=== PATIENT | female | born 1960 | race Caucasian/White ===

== ENCOUNTER → 2022-05-29 14:36 | Outpatient (BNVA) | payer OTHER, SELFPAY | PROVIDERS: PCP Family Medicine; Visit Provider Family Medicine | DX: E11.9 Type 2 diabetes mellitus without complications (principal); I10 Essential (primary) hypertension; R32 Unspecified urinary incontinence; Z12.39 Encounter for other screening for malignant neoplasm of breast; Z12.11 Encounter for screening for malignant neoplasm of colon; Q79.60 Ehlers-Danlos syndrome, unspecified; M25.511 Pain in right shoulder; M25.512 Pain in left shoulder; N81.6 Rectocele; R07.9 Chest pain, unspecified; D35.00 Benign neoplasm of unspecified adrenal gland | CPT/HCPCS: 80053; 80061; 81000; 83036 ==

== ENCOUNTER 2022-06-02 14:41 | Outpatient (CLI) | payer OTHER, SELFPAY ==
--- NOTE | 2022-06-02 14:47 | MM_ITS ---
WS: [id number] BILATERAL 3D TOMOSYNTHESIS DIGITAL SCREENING MAMMOGRAPHY WITH CAD CLINICAL INFORMATION: screen for breast cancern HISTORY: Screening mammogram. No current complaints. COMPARISON: None. TECHNIQUE: Bilateral CC and MLO views. FINDINGS: Scattered fibroglandular densities bilaterally. No suspicious focal mass, asymmetry, calcifications, or architectural distortion. No evidence of malignancy. A few tiny incidental punctate calcifications . MM/[place] [id number] IMPRESSION: BI-RADS: 2-Benign FOLLOW UP: 1 Year Follow-up Recommend return to annual screening mammography.
== END 2022-06-02 14:42 | disposition home or self-care (01) ==
LOC: RAD 14:44
PROVIDERS: PCP Family Medicine; Visit Provider Family Medicine
DX: Z12.31 Encounter for screening mammogram for malignant neoplasm of breast (principal)
CPT/HCPCS: 77063; 77067

== ENCOUNTER → 2022-07-02 11:54 | Outpatient (BNVA) | payer OTHER, SELFPAY | PROVIDERS: PCP Family Medicine; Visit Provider Family Medicine | DX: I10 Essential (primary) hypertension (principal); E11.9 Type 2 diabetes mellitus without complications | CPT/HCPCS: 80048 ==

== ENCOUNTER 2022-09-15 13:00 | Emergency (ER) | payer OTHER, SELFPAY ==
[2022-09-15 14:06] VITALS: BP 132/75; PULSE 82; RESP 13; TEMP 36.6; O2SAT 100
--- NOTE | 2022-09-15 14:27 | W.ED.UPPEXIN ---
HPI - Extremity Injury (Upper) General: Chief Complaint: Extremity Injury, Upper Stated Complaint: Right ring finger cut Time Seen by Provider: 09/15/22 14:13 Source: patient Mode of arrival: ambulatory Limitations: no limitations History of Present Illness: Patient is a 61-year-old female presents to ED today with a complaint of a right fourth finger injury. Patient states just prior to arrival she was using a mandolin to slice and eggplant when she sliced the distal tip of her finger off. Last tetanus unknown MD complaint: injury to: right and finger Onset (ago): hour(s) Other injuries: none Place: home Severity: mild Relieving factors: none Exacerbating factors: none Context: laceration (avulsion) Associated symptoms: Reports no associated symptoms Review of Systems Musc: Reports: extremity pain (R 4th finger) Skin/Breast: Reports: other (distal tip finger amputation ) Neuro: Denies: numbness in extremities or sensory changes PFSH ED PFSH: Medical History Remi-Danlos syndrome Hypertension Surgical History History of ankle surgery left History of arthroscopy of left knee History of carpal tunnel repair History of cholecystectomy History of hysterectomy History of repair of rectocele History of total knee arthroplasty right Family History Sister Stroke Diabetes Hypertension Thyroid disease Mother Breast cancer Denies family history of Colon cancer Ovarian cancer Heart disease Hypercholesteremia Uterine cancer Social History Smoking and tobacco status: never smoked Second hand smoke exposure: No Alcohol intake: never History of recent travel: No Physical Exam Const: COMMON NORMALS: no acute distress, average body habitus, patient oriented x3, no limitations, healthy appearing, alert and well nourished GENERAL APPEARANCE: cooperative Extremity: COMMON NORMALS: full ROM GENERAL: Yes normal exam except as noted RIGHT UPPER EXTREMITY: Yes hand & digits OTHER: pt has a minor fingertip amputation to the distal tip/soft tissue of her R 4th finger; no bleeding currently; no bony involvement; no nail involvement Neuro: COMMON NORMALS: patient oriented x3, moves all extremities, no focal motor deficits and no sensory deficits noted SENSORIUM/ORIENTATION: Yes alert Course Vital Signs: Vital signs: Vital Signs Temperature 97.8 F 09/15/22 14:06 Pulse Rate 82 09/15/22 14:06 Respiratory Rate 13 09/15/22 14:06 Blood Pressure 132/75 09/15/22 14:06 Pulse Oximetry 100 09/15/22 14:06 Oxygen Delivery Me thod 09/15/22 14:06 MDM - Extremity Injury (Upper) Medical Decision Making Patient has a minor soft tissue amputation to the distal tip of her right fourth finger. No bony or nail involvement. Tetanus will be updated. Wound care discussed at home. Return to ED precautions given. Discharge Plan Discharge Patient Disposition: Home Clinical Impression: Fingertip amputation Qualifiers: Encounter type: initial encounter Qualified Code(s): S68.119A - Complete traumatic metacarpophalangeal amputation of unspecified finger, initial encounter Condition: Stable Prescriptions: No Action estradiol [Estrace] 0.01 % (0.1 mg/gram) cream 1 g vaginal DAILY Qty: 42.5 0RF Rx Instructions: for 14 nights, then twice weekly after that. tramadol 50 mg tablet 50 mg PO BID PRN (Reason: pain) Qty: 45 0RF methocarbamol 750 mg tablet 750 mg PO BID Qty: 60 0RF loratadine [Allergy Relief (loratadine)] 10 mg tablet 10 mg PO DAILY ASPIRIN as directed diphenhydramine HCl [Benadryl] 25 mg capsule 50 mg PO .qhs PRN baclofen 10 mg tablet 10 mg PO BID PRN (Reason: spasm) Qty: 60 0RF potassium chloride 20 mEq tablet extended release 20 meq PO DAILY 30 Days Qty: 30 2RF lisinopril-hydrochlorothiazide 20-25 mg tablet 1 tab PO DAILY 90 Days Qty: 90 0RF Discharge Orders: Discharge ED (Routine); Ordered 09/15/22 Ordered By: Mary Moore Referrals: Valery Rodriguez MD [Primary Care Provider] - Patient Instructions: Opioid Safety, Pain Management Coding Level of Care Code ED Publication Designer for Maicol Robertson
[2022-09-15] MEDS: tetanus-diphtheria tox (adult) 0.5 mL SDV IM (15:02)
== END 2022-09-15 15:00 | disposition home or self-care (01) ==
PROVIDERS: Emergency Provider Physician Assistant; PCP Family Medicine
DX: S68.614A Complete traumatic transphalangeal amputation of right ring finger, initial encounter (principal); Z79.82 Long term (current) use of aspirin; I10 Essential (primary) hypertension; W26.0XXA Contact with knife, initial encounter; Z23 Encounter for immunization
CPT/HCPCS: 90471; 90714; 99283

== ENCOUNTER → 2022-11-27 07:59 | Outpatient (BNVA) | payer OTHER, SELFPAY | PROVIDERS: PCP Family Medicine; Visit Provider Family Medicine | DX: E87.6 Hypokalemia (principal) | CPT/HCPCS: 80048; 83036 ==

== ENCOUNTER → 2023-02-04 09:35 | Outpatient (BNVA) | payer OTHER, SELFPAY | PROVIDERS: PCP Family Medicine; Visit Provider Family Medicine | DX: E87.6 Hypokalemia (principal) | CPT/HCPCS: 80048 ==

== ENCOUNTER → 2023-02-23 09:07 | Outpatient (BNVA) | payer OTHER, SELFPAY | PROVIDERS: PCP Family Medicine; Visit Provider Family Medicine | DX: R53.83 Other fatigue (principal); R11.0 Nausea | CPT/HCPCS: 80053; 82306; 82607; 84443; 85025 ==

== ENCOUNTER 2023-10-06 08:43 | Emergency (ER) | payer MEDICAID, SELFPAY ==
[2023-10-06 08:46] VITALS: BP 146/80; PULSE 69; RESP 18; TEMP 36.8; O2SAT 98; BMI 27.4
--- NOTE | 2023-10-06 08:52 | XR_ITS ---
WS: [id number] XR elbow RT min 3V* [id number] REASON FOR EXAM: FALL FINDINGS: No joint effusion identified. There is a very subtle deformity of the medial radial head/shaft junction which could represent acute nondisplaced proximal radial fracture. Large enthesophyte at the flexor origin on the medial femoral condyle. Joint spaces of the right elbow are intact. IMPRESSION: Potential proximal radial occult fracture as above.
--- NOTE | 2023-10-06 09:08 | CT_ITS ---
WS: [id number] CT HEAD TECHNIQUE: Noncontrast CT of the head obtained from the skullbase to the vertex. CLINICAL INFORMATION: trauma COMPARISON: None. DLP: 1461.[address] scans at [facility] use at least one of these dose optimization techniques: automated e xposure control; mA and/or kV adjustment per patient size (includes targeted exams where dose is matc hed to clinical indication); or iterative reconstruction. FINDINGS: No evidence of intracranial hemorrhage or mass effect. Ventricular system and basal cisterns are brown nt. Minimal small vessel changes with mild parenchymal volume loss. No extra-axial fluid collections. No evidence of mass or mass effect. Normal hobbs-white differentiation. Paranasal sinuses and mastoid air cells are well aerated. .Normal visualized soft tissues. IMPRESSION: 1. No evidence of intracranial hemorrhage or mass effect. 2. No acute intracranial findings.
[2023-10-06 09:35] VITALS: BP 146/80; O2SAT 96
--- NOTE | 2023-10-06 09:44 | ED_ITS ---
HPI - Fall General: Chief Complaint: Fall Stated Complaint: FALL Time Seen by Provider: 10/06/23 08:47 Source: patient Mode of arrival: EMS History of Present Illness: 62-year-old female presents emergency ro om via EMS yesterday she fell hit the back of her head she had some headaches some nausea she has not vomited. She also had some dizziness associated with it. No loss consciousness at the time of fall. Denies any other injuries no vomiting or vision changes since the fall does have persistent mild headache and dizziness MD complaint: fall Onset (ago): hour(s) Fall from: standing Fall witnessed: no Place fall occurred: home Loss of consciousness: None Prolonged down time: no Symptoms prior to fall: none Context: tripped/slipped Location of injury: head Associated symptoms-after fall: Reports headache(s) and neck pain; Denies abdominal pain or chest pain Review of Systems Const: Denies: fever(s) or chills Card: Denies: chest pain Resp: Denies: dyspnea GI: Denies: abdominal pain : Denies: dysuria, urinary frequency or urinary urgency Musc: Reports: neck pain; Denies: back pain Skin/Breast: Denies: rash Neuro: Reports: headache(s) PFSH ED PFSH: Medical History Seasonal allergies Remi-Danlos syndrome Hypertension Surgical History History of carpal tunnel repair History of ankle surgery left History of repair of rectocele History of hysterectomy History of arthroscopy of left knee History of total knee arthroplasty right History of cholecystectomy Family History Sister Stroke Diabetes Hypertension Thyroid disease Mother Breast cancer Denies family history of Colon cancer Ovarian cancer Heart disease Hypercholesteremia Uterine cancer Social History Smoking and tobacco/nicotine status: never used tobacco/nicotine Second hand smoke exposure: No Alcohol intake: never Substance/Drug Use: never Physical Exam Const: COMMON NORMALS: no acute distress GENERAL APPEARANCE: cooperative and comfortable ORIENTATION/CONSCIOUSNESS: Yes awake, Yes oriented to person, Yes oriented to place and Yes oriented to time HENMT: COMMON NORMALS: normocephalic, atraumatic and hearing grossly normal bilaterally HEAD & SCALP: normocephalic and atraumatic Resp: COMMON NORMALS: normal respiratory effort, No retractions, No use of accessory muscles and clear to auscultation bilaterally AUSCULTATION: clear to auscultation bilaterally Cardio: COMMON NORMALS: regular rate, regular rhythm and No murmurs present (Cardio) RATE: regular rate RHYTHM: regular rhythm GI: COMMON NORMALS: Soft to palpation and No hepatosplenomegaly present AUSCULTATION: Yes normoactive bowel sounds PALPATION: Yes Soft to palpation, No Tenderness to palpation present (GI), No Guarding due to palpation present (GI) and Yes No hepatosplenomegaly present Extremity: COMMON NORMALS: normal to inspection, capillary refill normal, no clubbing, cyanosis or edema, no calf tenderness and no pedal edema Neuro: SENSORIUM/ORIENTATION: Yes oriented to person, Yes oriented to place and Yes oriented to time Skin: COMMON NORMALS: no rashes or lesions noted GENERAL SKIN EXAM: no rashes or lesions noted Course Vital Signs: Vital signs: Vital Signs Temperature 98.2 F 10/06/23 08:46 Pulse Rate 69 10/06/23 08:46 Respiratory Rate 18 10/06/23 08:46 Blood Pressure 146/80 10/06/23 09:35 Pulse Oximetry 97 10/06/23 10:23 Oxygen Delivery Me thod Room Air 10/06/23 10:23 MDM - Fall Medical Decision Making Labs are unremarkable elbow x-ray shows a possible occult radial head fracture remainder of the imaging is negative. Will place patient in a sling advised not to use the right elbow and follow-up imaging and consultation with orthopedics as an outpatient Medical Records I reviewed the patient's medical records. Lab Data I reviewed the patient's lab results. All radiology interpretation(s) finalized by discharge Discharge Plan Discharge Patient Disposition: Home Clinical Impression: Radial head fracture Condition: Stable Prescriptions: No Action tramadol 50 mg tablet 50 mg PO BID PRN (Reason: pain) Qty: 45 0RF methocarbamol 750 mg tablet 750 mg PO BID Qty: 60 1RF loratadine [Allergy Relief (loratadine)] 10 mg tablet 10 mg PO DAILY ASPIRIN as directed diphenhydramine HCl [Benadryl] 25 mg capsule 50 mg PO .qhs PRN baclofen 10 mg tablet 10 mg PO BID PRN (Reason: spasm) Qty: 60 0RF potassium chloride 20 mEq tablet extended release 40 meq PO DAILY 30 Days Qty: 30 2RF omeprazole 40 mg capsule,delayed release(DR/EC) See Rx Instructions .ROUTE .COMPLEX Qty: 90 0RF Dose Instruction: TAKE 1 CAPSULE BY MOUTH DAILY Rx Instructions: TAKE 1 CAPSULE BY MOUTH DAILY levalbuterol HCl 1.25 mg/3 mL solution for nebulization See Rx Instructions .ROUTE .COMPLEX Qty: 75 0RF Dose Instruction: INHALE 1 VIAL VIA NEBULIZER EVERY 4 HOURS NEEDED FOR SHORTNESS OF BREATH OR WHEEZING Rx Instructions: INHALE 1 VIAL VIA NEBULIZER EVERY 4 HOURS NEEDED FOR SHORTNESS OF BREATH OR WHEEZING estradiol 0.01 % (0.1 mg/gram) cream See Rx Instructions .ROUTE .COMPLEX Qty: 42.5 0RF Dose Instruction: APPLY ONE GRAM VAGINALLY ONCE NIGHTLY FOR 14 NIGHTS AND THEN USE TWICE WEEKLY THEREAFTER Rx Instructions: APPLY ONE GRAM VAGINALLY TWICE WEEKLY lisinopril-hydrochlorothiazide 20-25 mg tablet See Rx Instructions .ROUTE .COMPLEX Qty: 90 0RF Dose Instruction: TAKE 1 TABLET BY MOUTH DAILY Rx Instructions: TAKE 1 TABLET BY MOUTH DAILY Discharge Orders: Discharge ED (Routine); Ordered 10/06/23 Ordered By: Cam Esteban Referrals: Valery Rodriguez MD [Primary Care Provider] - Discharge Diet: Usual diet Discharge Activity: Limit activity as instructed and Use walker/crutches as instructed Patient Instructions: Opioid Safety, Pain Management Activity Restrictions/Additional Instructions: Thank you for choosing [facility] for your healthcare needs today. Please realize this is an emergency room and that we are providing you with a medical screening exam and this may not be complete and all inclusive of all the testing and or work up that you may need to determine your ailment or severity of your illness. It is very important that you follow up as instructed or that you return to the Emergency Department should you have concerns or if your condition changes or worsens in any way. You were seen today after a fall. You have a nondisplaced radial head fracture. This does not likely going to require surgery or a cast and you should simply use the sling until released by orthopedics. Case management make arrangements for you to have a follow-up with the orthopedic clinic your other imaging was normal. Coding Level of Care Code ED Paper Cup Handle Machine Operator for Maicol Robertson
--- NOTE | 2023-10-06 09:54 | CT_ITS ---
WS: [id number] CT CERVICAL TRAUMA TECHNIQUE: Noncontrast CT of the cervical spine with coronal and sagittal reformatted images. CLINICAL INFORMATION: Trauma COMPARISON: None. DLP: 1461.[address] scans at [facility] use at least one of these dose optimization techniques: automated e xposure control; mA and/or kV adjustment per patient size (includes targeted exams where dose is matc hed to clinical indication); or iterative reconstruction. FINDINGS: Mild cervical curve. Straightening of the normal cervical lordosis. Mild spondylitic changes. Disc sp yuan narrowing worse at C4-C5 and C5-C6. Normal craniocervical junction. Normal C1-C2 articulation. De ns is normal in appearance. Normal occipital condyles. No high-grade spinal canal narrowing. Normal C 1 ring. No evidence of acute fracture or dislocation. Normal prevertebral soft tissues. Mastoids air cells are well aerated. IMPRESSION: No evidence of acute fracture or dislocation.
--- NOTE | 2023-10-06 09:54 | XR_ITS ---
WS: [id number] XR shoulder RT min 2V* [id number] REASON FOR EXAM: Trauma FINDINGS: Clavicle intact. Acromioclavicular joint intact with moderate narrowing and moderate subchondral sclerosis and osteoph ytosis. Glenohumeral joint intact. No humeral or glenoid fracture. Scapula appears intact. IMPRESSION: No acute abnormality.
[2023-10-06 10:23] VITALS: O2SAT 97
--- NOTE | 2023-10-07 08:02 | DCPLANNER ---
Message sent to Orthopedics for a follow up appointment on- occult radial head fracture.
== END 2023-10-06 11:36 | disposition home or self-care (01) ==
PROVIDERS: Emergency Provider Family Medicine; PCP Family Medicine
DX: S52.121A Displaced fracture of head of right radius, initial encounter for closed fracture (principal); I10 Essential (primary) hypertension; W19.XXXA Unspecified fall, initial encounter
CPT/HCPCS: 70450; 72125; 73030; 73080; 99284

== ENCOUNTER → 2023-11-27 10:05 | Outpatient (BNVA) | payer OTHER, SELFPAY | PROVIDERS: PCP Family Medicine; Visit Provider Family Medicine | DX: Z00.01 Encounter for general adult medical examination with abnormal findings (principal) | CPT/HCPCS: 80053; 80061; 83036; 85025 ==

== ENCOUNTER 2024-01-11 14:27 | Outpatient (CLI) | payer OTHER, SELFPAY ==
--- NOTE | 2024-01-11 14:38 | XR_ITS ---
WS: [id number] XR knee RT 3V* [id number] REASON FOR EXAM: pain swelling of r knee; s/p tka FINDINGS: Total right knee arthroplasty. The components of the arthroplasty are intact and in proper position and alignment unchanged compared to 01/11/2024. No new findings. XR/XR knee RT 3V* [id number] IMPRESSION: Stable total right knee arthroplasty.
== END 2024-01-11 14:28 | disposition home or self-care (01) ==
LOC: RAD 14:31
PROVIDERS: PCP Family Medicine; Visit Provider Family Medicine
DX: M25.561 Pain in right knee (principal); Z96.651 Presence of right artificial knee joint
CPT/HCPCS: 73562

== ENCOUNTER → 2024-03-11 09:30 | Outpatient (BNVA) | payer OTHER, MEDICAID, SELFPAY | PROVIDERS: PCP Family Medicine; Referring Provider Family Medicine; Visit Provider Physician Assistant | DX: M25.561 Pain in right knee (principal); Z96.651 Presence of right artificial knee joint | CPT/HCPCS: 73560; 73565 ==

== ENCOUNTER 2024-03-28 14:15 | Outpatient (CLI) | payer OTHER, MEDICAID, SELFPAY ==
--- NOTE | 2024-03-28 14:30 | CT_ITS ---
WS: [id number] CT RIGHT KNEE, NONCONTRAST HISTORY: checking right knee replacement hardware Technique: All CT scans at [facility] use at least one of these dose optimization techniques: automated exposure control; mA and/or kV adjustment per patient size (includes targeted exams where dose is matched to clinical indication); or iterative reconstruction. DLP: 477.84 mGy.cm COMPARISON: Radiograph 03/11/2024 Patient is status post RIGHT total knee arthroplasty. There is artifact from the arthroplasty. Hardwa re appears appropriately positioned and aligned on the localizer image. No fractures or displacement. No loosening is identified by CT. No destructive bone lesions. Medial and lateral compartments appea r appropriate. No loose bodies. No significant muscle atrophy. Small suprapatellar joint effusion. CT/CT knee RT wo con* [id number] IMPRESSION: 1. Status post RIGHT total knee arthroplasty appears appropriate when evaluate d by CT. 2. No evidence for loosening or malalignment. No loose body identified. 3. Small suprapatellar joint effusion.
== END 2024-03-28 14:16 | disposition home or self-care (01) ==
PROVIDERS: PCP Family Medicine; Visit Provider Physician Assistant
DX: T84.84XA Pain due to internal orthopedic prosthetic devices, implants and grafts, initial encounter (principal); Z96.651 Presence of right artificial knee joint
CPT/HCPCS: 73700; 85025; 85651; 86140

== ENCOUNTER 2024-05-09 14:32 | Outpatient (CLI) | payer OTHER, MEDICAID, SELFPAY ==
[2024-05-09 15:10] LABS: Eosinophils # 0.2 10^3/uL (0.0-0.8); Eosinophils % 3.4 %; Hematocrit 35.6 % (36-47); Lymphocytes # 2.2 10^3/uL (0.8-4.8); Lymphocytes % 37.4 %; Mean Corpuscular Hemoglobin 30.5 pg (27-33); Mean Corpuscular Volume 89.7 fl (85-98); Monocytes # 0.4 10^3/uL (0.2-0.9); Monocytes % 6.5 %; Neutrophils # 3.08 10^3/uL (1.8-7.7); Neutrophils % 52.5 %; Nucleated Red Blood Cells % 0 %; Platelet Count 231 10^3/cmm (157-399); Red Blood Count 3.97 10^6/uL (3.85-5.65); Red Cell Distribution Width 12.2 % (12.1-15.1); White Blood Count 5.86 10^3/uL (3.29-11.43)
[2024-05-09 15:26] LABS: Albumin Level 4.2 g/dL (3.5-5.2); Alkaline Phosphatase 53 U/L (35-105); Anion Gap 16.1 (5-19); Aspartate Amino Transferase 13 U/L (0-32); Blood Urea Nitrogen 13 mg/dL (8-23); Calcium 8.7 mg/dL (8.5-10.5); Carbon Dioxide 26 mmol/L (22-29); Chloride 100 mmol/L (98-107); Globulin 2.3 g/dL (1.3-4.6); Glomerular Filtration Rate 72.2 mL/min (90-130); Glucose 135 mg/dL (65-115); Osmolality Calculated 290 mOsm/kg (285-295); Potassium 3.1 mmol/L (3.5-5.1); Sodium 139 mmol/L (136-145); Total Bilirubin 0.2 mg/dL (0.15-1.2); Total Protein 6.5 g/dL (6.6-8.7)
[2024-05-09 15:38] LABS: Alanine Aminotransferase 15 U/L (0-33)
== END 2024-05-09 14:33 | disposition home or self-care (01) ==
LOC: LAB 14:34
PROVIDERS: PCP Family Medicine; Visit Provider Family Medicine
DX: D35.00 Benign neoplasm of unspecified adrenal gland (principal)
CPT/HCPCS: 36415; 80053; 83835; 85025

== ENCOUNTER 2024-05-13 09:02 | Outpatient (CLI) | payer OTHER, MEDICAID, SELFPAY ==
[2024-05-13 09:45] LABS: Alanine Aminotransferase 14 U/L (0-33); Albumin Level 4.4 g/dL (3.5-5.2); Alkaline Phosphatase 55 U/L (35-105); Anion Gap 16.3 (5-19); Aspartate Amino Transferase 15 U/L (0-32); Blood Urea Nitrogen 11 mg/dL (8-23); Calcium 8.8 mg/dL (8.5-10.5); Carbon Dioxide 25 mmol/L (22-29); Chloride 100 mmol/L (98-107); Globulin 2.3 g/dL (1.3-4.6); Glomerular Filtration Rate 72.2 mL/min (90-130); Glucose 118 mg/dL (65-115); Osmolality Calculated 286 mOsm/kg (285-295); Potassium 3.3 mmol/L (3.5-5.1); Sodium 138 mmol/L (136-145); Total Bilirubin 0.3 mg/dL (0.15-1.2); Total Protein 6.7 g/dL (6.6-8.7)
== END 2024-05-13 09:03 | disposition home or self-care (01) ==
LOC: LAB 09:05
PROVIDERS: PCP Family Medicine; Visit Provider Internal Medicine
DX: E27.9 Disorder of adrenal gland, unspecified (principal); D35.00 Benign neoplasm of unspecified adrenal gland
CPT/HCPCS: 36415; 80053; 82088; 84244

== ENCOUNTER 2024-05-17 08:03 | Outpatient (CLI) | payer OTHER, MEDICAID, SELFPAY ==
[2024-05-17 08:44] LABS: Total Volume Urine 1700 ml
[2024-05-17 08:51] LABS: Urine Creatinine 58 mg/dL (28-217)
== END 2024-05-17 08:04 | disposition home or self-care (01) ==
LOC: LAB 08:06
PROVIDERS: PCP Family Medicine; Visit Provider Internal Medicine
DX: E27.9 Disorder of adrenal gland, unspecified (principal); D35.00 Benign neoplasm of unspecified adrenal gland
CPT/HCPCS: 82384; 82530; 82570

== ENCOUNTER → 2024-07-21 08:44 | Outpatient (BNVA) | payer OTHER, MEDICAID, SELFPAY | PROVIDERS: PCP Family Medicine; Visit Provider Physician Assistant | DX: Z01.818 Encounter for other preprocedural examination (principal); E11.9 Type 2 diabetes mellitus without complications | CPT/HCPCS: 36415; 80053; 81001; 83036; 85025 ==

== ENCOUNTER 2024-07-28 16:38 | Outpatient (CLI) | payer OTHER, MEDICAID, SELFPAY ==
--- NOTE | 2024-07-28 16:45 | CT_ITS ---
WS: [id number] CT LEFT knee, noncontrast HISTORY: LEFT TOTAL KNEE ARTHROPLASTY TECHNIQUE: Protocol for [facility] total knee replacement has been obtained. This includes axial imaging th rough the LEFT hip, LEFT knee and LEFT ankle. DLP: 934.56 mGy.cm COMPARISON: Radiograph 03/11/2024 Pelvis: Mild degenerative air in the SI joints. No destructive bone lesions. Small erosion and sclero sis involving the symphysis pubis. Small scattered sigmoid diverticula. LEFT knee: Mild tricompartment joint space narrowing. Screw and plate fixation along the medial tibia l metaphysis. No hardware fracture identified or lucency surrounding the screws. LEFT ankle: Subchondral cystic changes noted in the midfoot. CT/CT knee [facility] [id number] IMPRESSION: CT imaging provided for [facility] robotic total knee replacement.
== END 2024-07-28 16:39 | disposition home or self-care (01) ==
LOC: RAD 16:39
PROVIDERS: PCP Family Medicine; Visit Provider Student in an Organized Health Care Education/Training Program
DX: Z01.818 Encounter for other preprocedural examination (principal); M17.12 Unilateral primary osteoarthritis, left knee; M85.672 Other cyst of bone, left ankle and foot
CPT/HCPCS: 73700

== ENCOUNTER 2024-08-08 15:30 | Observation (INO) | payer OTHER, MEDICAID, SELFPAY ==
[2024-08-08] VITALS (15 sets, daily range): BP systolic 99–137; BP diastolic 52–77; PULSE 68–91; RESP 14–18; TEMP 36.5–37; O2SAT 92–100; BMI 28.3
--- NOTE | 2024-08-08 11:14 | W.PM.OPSUD ---
Surgery/Procedure H&P Update DATE OF PROCEDURE: August 08, 2024 DATE H&P PERFORMED: 07/21/24 H&P UPDATE INFORMATION: I have reviewed H&P completed within last 30 days, I have examined patient prior to procedure and No changes to prior documentation CHANGES TO PREVIOUS DOCUMENTATION: Patient cleared the preoperative clearance process and ready proceed with surgical intervention for a left total knee arthroplasty with left knee removal orthopedic hardware. Patient understands the ins outs procedure risk benefits complication alternatives with surgery and through shared decision make elects proceed with surgical invention. All questions answered at this time. PREOP DIAGNOSIS: Retained orthopedic hardware, left knee degenerative joint disease PRIMARY INDICATION FOR PROCEDURE: Retained orthopedic hardware, left knee degenerative joint disease PLANNED PROCEDURE: Operation Date: 08/08/24 13:30 Proposed Procedures p Farhan Robot Total Knee Arthroplasty(Left) - Hunter Petersen DO s Hardware Removal Knee(Left) - Hunter Petersen DO
[2024-08-08] MEDS: lactated ringers 500 ML IV (11:27)
[2024-08-08] MEDS: ketorolac 30 mg/mL INJ IVP (11:30)
[2024-08-08 11:31] LABS: Basophils % 0.2 %; Eosinophils # 0.1 10^3/uL (0.0-0.8); Eosinophils % 1.7 %; Hematocrit 36.5 % (36-47); Lymphocytes # 1.8 10^3/uL (0.8-4.8); Lymphocytes % 31.6 %; Mean Corpuscular HGB Conc 33.7 g/dL (30-55); Mean Corpuscular Hemoglobin 29.9 pg (27-33); Mean Corpuscular Volume 88.8 fl (85-98); Monocytes # 0.4 10^3/uL (0.2-0.9); Monocytes % 6.6 %; Neutrophils # 3.45 10^3/uL (1.8-7.7); Neutrophils % 59.6 %; Nucleated Red Blood Cells % 0 %; Platelet Count 256 10^3/cmm (157-399); Red Blood Count 4.11 10^6/uL (3.85-5.65); Red Cell Distribution Width 12.4 % (12.1-15.1); White Blood Count 5.79 10^3/uL (3.29-11.43)
[2024-08-08] MEDS: acetaminophen 1,000 MG/100 ML PIGGYBACK 400 MG IV ×2 (11:35→19:57)
[2024-08-08] MEDS: scopolamine 1.5 Patch 1 PATCH TRANSDERMA (11:40)
[2024-08-08 12:00] LABS: Anion Gap 12.8 (5-19); Blood Urea Nitrogen 8 mg/dL (8-23); Calcium 9.4 mg/dL (8.5-10.5); Carbon Dioxide 30 mmol/L (22-29); Chloride 97 mmol/L (98-107); Creatinine Clr Calc Pharmacy 83.3704; Glomerular Filtration Rate 84.2 mL/min (90-130); Glucose 96 mg/dL (65-115); Osmolality Calculated 280 mOsm/kg (285-295); Potassium 3.8 mmol/L (3.5-5.1); Sodium 136 mmol/L (136-145)
--- NOTE | 2024-08-08 12:30 | ANES.PREANE2 ---
Pre-Anesthetic Assessment Height/Weight: Height 1.65 m Weight 77.111 kg Temp Pulse Resp BP Pulse Ox O2 Del Method 97.9 F 80 16 125/72 99 Room Air 08/08/24 11:10 08/08/24 11:10 08/08/24 11:10 08/08/24 11:10 08/08/24 11:10 08/08/24 11:44 Preop Diagnosis: Retained orthopedic hardware, left knee degenerative joint disease Operation Date: 08/08/24 13:30 Proposed Procedures p Farhan Robot Total Knee Arthroplasty(Left) - Hunter Petersen DO s Hardware Removal Knee(Left) - Hunter Petersen DO Familial anesthetic complications: None Was Beta Hector taken within 24 hours: N/A Was Clonidine taken within 24 hours: N/A Last intake: Intake Last Liquid Date 08/07/24 Last Liquid Time 18:00 Last Solid Date 08/07/24 Last Solid Time 18:00 Social No alcohol and No tobacco Exam alert, oriented x 3, clear to auscultation bilaterally and regular rate & rhythm Airway Mallampati: Class II Dentition: full CV/HEM Hypertension Metabolic Diabetes Mellitus Spoke to Dr. Barrientos regarding pheochromocytoma. All labs were negative for pheo and she sees no further need for investigation or treatment Anesthetic Plan ASA status: 3 Anesthesia: General and Regional (specify below) Risk of > 500 ml blood loss (7ml/kg in children): No Medications/Allergies Home Medications Medication Instructions Recorded Confirmed Last Taken Type loratadine 10 mg tablet (Allergy 10 mg PO DAILY 05/29/22 08/07/24 08/03/24 History Relief (loratadine)) albuterol sulfate 90 mcg/actuation 2 puff inhalation Q6H PRN 04/25/24 08/07/24 08/08/24 07:00 Rx aerosol inhaler shortness of breath or wheezing #8.5 grams lisinopril 20 20 - 25 tab PO QPM 08/04/24 08/07/24 08/07/24 19:00 History mg-hydrochlorothiazide 25 mg tablet Allergies Allergy/AdvReac Type Severity Reaction Status Date / Time cephalexin [From Keflex] Allergy rash Verified 07/27/24 09:00 codeine Allergy ALGY-Rash Verified 07/27/24 09:00 Penicillins Allergy ALGY-Rash Verified 07/27/24 09:00 Sulfa (Sulfonamide Allergy ALGY-Rash Verified 07/27/24 09:00 Antibiotics) [facility] Anesthesia Medical History Seasonal allergies Remi-Danlos syndrome Hypertension Surgical History History of carpal tunnel repair History of ankle surgery left History of repair of rectocele History of hysterectomy History of arthroscopy of left knee History of total knee arthroplasty right History of cholecystectomy Family History Sister Stroke Diabetes Hypertension Thyroid disease Mother Breast cancer Denies family history of Colon cancer Ovarian cancer Heart disease Hypercholesteremia Uterine cancer Social History Smoking and tobacco/nicotine status: never used tobacco/nicotine Second hand smoke exposure: No Alcohol intake: never Substance/Drug Use: never Data Anesthesia 08/08/24 11:20 08/08/24 11:20 Short CBC 08/08/24 Range/Units 11:20 WBC 5.79 (3.29-11.43) 10^3/uL Hgb 12.30 (11.27-16.99) g/dL Hct 36.5 (36-47) % MCV 88.8 (85-98) fl Plt Count 256 (157-399) 10^3/cmm Neut % (Auto) 59.6 % Neut # (Auto) 3.45 (1.8-7.7) 10^3/uL BMP 08/08/24 11:20 Sodium 136 Potassium 3.8 Chloride 97 L Carbon Dioxide 30 H BUN 8 Creatinine 0.7 Glucose 96 Calcium 9.4 Cardiac Studies: No Data to Display
--- NOTE | 2024-08-08 12:32 | ANES.PROC ---
Anesthesia Procedures Procedure/Date: 08/08/24 Nerve Block ^: Nerve Block 1: Main Anesthesia: general anesthesia Time Out Performed: Yes Consent: requested by attending/covering physician, from patient, from other, risks and benefits reviewed and patient agrees to proceed Nerve block location: adductor canal (L) Anesthesia monitors applied: pulse oximetry, EKG, BP cuff and oxygen Nerve block position: supine Anesthetic Used: ropivicaine 0.5% (30 ml) and with decadron (4 mg) Nerve Stimulator Used?: No Interscalene/Femoral BLK: 4 stimuplex 21 g needle used for position and inplane approach, visualize local anesthetic spread and no vascular puncture identified Injection: neg aspiration of heme Patient Tolerated Procedure: well Complications: none
[2024-08-08] MEDS: midazolam 1 mg/mL INJ 2 mL 2 MG IVP (12:37)
--- NOTE | 2024-08-08 12:41 | SUR.PREOP ---
12:20 LEFT FEMORAL ADUCTER NERVE BLOCK CONDUCTED BY DOCTOR Alvarado ,USING 30ml OF 5% ROPIVACAINE AND 4mg OF DECADRON. PT ON NEW ACCOUNT INTERVIEWER . PT TOLERATED PROCEDURE WELL.
[2024-08-08] MEDS: sodium chloride 0.9% 1,000 ML 30 ML IV (12:52)
[2024-08-08] MEDS: VANCOMYCIN ADD-Vantage 1,000 MG in 0.9% NaCl ADD-Vantage 250 ML 250 MG IV (13:17)
[2024-08-08] MEDS: tranexamic acid 1,000 mg/10mL SDV 1000 MG IV (14:00)
[2024-08-08] MEDS: clindamycin 600 MG/50 ML PREMIX 100 MG IV (14:24)
[2024-08-08] MEDS: VANCOMYCIN ADD-Vantage 1,000 MG VIAL 1000 MG XX (14:26)
--- NOTE | 2024-08-08 16:21 | XRR_ITS ---
PROCEDURE INFORMATION: Exam: XR Left Knee Exam date and time: 08/08/2024 4:39 PM Age: 63 years old Clinical indication: Device placement; Joint replacement hardware; Prior surgery; Surgery date: Post-operative (0-2 days); Surgery type: --lt knee; Additional info: Post L tka, do in pacu TECHNIQUE: Imaging protocol: Radiologic exam of the left knee. Views: 1 or 2 views. COMPARISON: CT knee LT [facility] [id number] 07/28/2024 4:46 PM FINDINGS: Bones/joints: Total-knee replacement. Anatomic alignment. Bone and metal are intact. Periarticular and intra-articular gas. A plate with screws is also present in the medial proximal tibia. Soft tissues: Normal. XR/XR knee LT 1-2V [id number] IMPRESSION: Postoperative findings
--- NOTE | 2024-08-08 16:21 | PM.OP ---
Operative Report Date of procedure: August 08, 2024 Surgeon: Hunter Petersen DO Dinkey Engine Firer: Krystian Petersen PA-C: PA was necessary for assistance in this case with leg positioning retraction and protection of neurovascular structures as well as assistance in implantation wound closure and dressing application. Procedure: Preoperative diagnosis: Left knee degenerative joint disease Post-op diagnosis: Same Procedure done: Left total knee arthroplasty, cemented?robotic assisted Farhan Left knee removal deep orthopedic hardware screws x 2 Implants: Sturgis triathlon size 3 femur CR cemented?left Sturgis triathlon size? 3 tibia primary baseplate cemented Sturgis triathlon symmetric patella size 29 mm Freedom triathlon polyethylene 11mm Surgeon: Hunter Petersen DO Estimated blood?loss: 50 mL Tourniquet 93minutes IV fluids: 800 mL Urine output: 200 mL Complications: None Condition: stable Disposition: floor Brief History: Patient is a 63-year-old female with with chronic?left knee degenerative joint disease.? Patient has been worked up in the outpatient setting in the orthopedic office at this point time through shared decision making given? [id number] arthritis as well as failed conservative treatment, and pt would?like to proceed with a?left total knee arthroplasty.? Through shared decision making elected to proceed with surgical intervention for?left total knee arthroplasty and removal of deep orthopedic hardware. Patient had previous what sounds to be an osteotomy at the proximal tibia with remanent of orthopedic hardware and screws this is all stable and healing well. At this point in time it was measured through the preoperative CT scan at the top 2 screws would need to be removed however the rest of the hardware can remain in place as to not have any stress risers intraoperatively. We talked about this in detail and she was agreeable and wanted to proceed with this. We talked about continued conservative treatment and surgical intervention as far as the risk benefits complications alternatives surgical and nonsurgical treatment options.? At this point time understanding patient risks with surgery patient agrees to proceed with surgical intervention.? Once again? risk with surgery include but are not?limited to make it better make it worse blood clot, heart attack, stroke, on the table, infection, injury to nerves or vessels, persistent pain, arthrofibrosis, implant failure.? Understanding these risks patient agrees to proceed with surgical intervention consent was obtained.? All questions answered. Procedure: Patient was seen and evaluated in the preoperative holding area.? Consent was reviewed and signed with patient with plan for?left total knee arthroplasty.? All questions answered.? Correct extremity marked.? Patient seen and evaluated by the anesthesia department and once cleared for surgery was taken back to the operative suite.? Patient was placed into a supine position on the OR table.? All bony prominences were well-padded.? Patient was appropriately secured to the bed.? Patient underwent anesthesia per the anesthesia department.?Benedict catheter was placed.? A nonsterile tourniquet was applied to the?left thigh.? At this point in time a final timeout performed.? Patient received appropriate preoperative antibiotics and TXA. Next the?left?lower extremity was then prepped and draped in standard orthopedic fashion. Esmarch tourniquet was used exsanguinate the?left?lower extremity.? Tourniquet was insufflated to 250 mmHg. A standard anterior incision was made over midline of the knee.? Sharp scalpel excision through skin and subcutaneous tissue full-thickness skin flaps were made.? Fascia was elevated off of the extensor retinaculum was stable with medial parapatellar arthrotomy was then made.? The performed standard sequential releases..? Immediately on entry into the joint patient was found to have severe eburnated bone and tricompartmental arthritic changes noted.? With significant osteophyte formation.? At this part of the procedure during my standard medial release and peel we were able to peel this all the way through the midline incision to the level of the hardware the 2 prominent screws were evident and the hardware was secured within the bone no evidence of hardware failure or loosening was appreciated. At this point time as her preoperative plan was to move the proximal 2 screws. I utilized electrocautery to isolate the screw heads care was made to not injure the MCL. At this point in time once I curetted out the screw heads identify the correct screwdriver and then atraumatically remove both of the proximal screws. The plate was still firmly secured in small edges of bone had overgrown around the edges securing this plate this is deemed to be in satisfactory position. At this point in time I then subsequently completed my medial release and then proceeded with the procedure. Next the the patella was then stuffed and the knee was then flexed.?? Lexi was placed superiorly around the anterior aspect of the femur this was freed of synovium and I subsequently then placed by 2 femur pins to establish my femur arrays for the Farhan robot.? These were then placed bicortically and? femur array was then appropriately secured with appropriate visualization.? Next attention was turned towards the tibial rays.? These were then drilled sequentially bicortically in parallel fashion and intraincisional.? I then placed my guide as well as my tibial array on in place.? This was appropriately secured and had excellent visualization with the Farhan robot.? Next the tibial checkpoint as well as femur checkpoint were then placed.? At this point time I then subsequently established my head center as well as my medial?lateral malleoli as well as my checkpoints.? Next utilizing standard Farhan technology I then mapped out the appropriate points and confirmation points around the femur as well as the tibia in standard fashion.? Once this was then done I then removed all osteophytes in preparation for dynamic testing.? All osteophytes were removed as well as I removed the ACL and the PCL was excised due to its significant tearing and degeneration noted.? At this point time the knee was brought into full extension and we performed our standard evaluation of our gap balancing stressing his?ligaments and extension as well as flexion appropriate adjustments were made to have appropriate gap balancing in both flexion and extension.? Patient had significant valgus deformity and were able to correct this to accommodate what her ligaments would tolerate. This plan for final cuts.? We get a preoperative plan evaluating our implants which was a size 3 femur and a size 3 tibia.? Next we brought in the Farhan robot and sequentially made our femur cuts.? All excess bony cuts were then removed.? Finally we made our tibial cut.? Once this was done a standard PCL retractor was then placed into this position I excised the medial and?lateral meniscus.? The tibial cut was then subsequently removed all excess bony debris was removed.? I then utilized a?lamina tariff publishing agent and remove the posterior osteophytes.? At this point time sized the tibia and confirmed this was a size 3.? I utilized our blunt probe to establish rotation of tibial implant.? Once this was done I then placed my tibia size 3 trial in appropriate position and then subsequently placed tibial pins to hold this into place, then trialed up to a size 11mm poly as well as a size 3 femur which was appropriately impacted in place knee was then subsequently brought into extension. Trials were then assessed,? this was stable with varus valgus stress in extension, there was slightly tight laterally in flexion and as a result I subsequently did a standard release of the popliteus which then brought us to having very symmetrical gap balancing in the flexion gap with symmetrical when brought into flexion demonstrating symmetrical gaps. I had excellent balance gaps in flexion and extension with varus and valgus stresses.? At this point I was satisfied with these implants these were then verified and opened on the back table size 3 tibia, size 3 femur,? size 11 mm polythickness.? We did confirm appropriate gap balancing and stresses as well as alignment utilizing? Farhan and were satisfied with this plan.? ?At this point time with my trials in place I then towel clip the patella everted this made appropriate measurements subsequently utilizing freehand technique performed by patellar resurfacing this was confirmed to be appropriate resection and subsequently sized to be a 29 mm symmetric.? My drill peg guides were then clamped and appropriate position and appropriate position in the patella for appropriate tracking and parallel with the joint.? Pegs were drilled trial implant was placed and the knee was then subsequently ranged and found to have excellent patellar tracking.? Femur pegs were then drilled.? All checkpoints as well as guidepins and arrays were removed and appropriate counts made.? Satisfied with our tibial placement rotation I then utilized the keel punch and prepped the tibia for the primary baseplate. Once again confirming there was no interference with the distal screws of the previous hardware. At this point time all of our trial implants were removed.? The wound bed? was thoroughly irrigated and dried and prepped for cementation.? Cement was mixed on the back table.? Once cement was ready this was then covered onto the tibia and the tibial baseplate was then impacted and all excess cement was removed.? Next the polyethylene was then impacted into place on the tibial baseplate.? Next cement was placed onto the femur as well as under the femur implants and impacted in to place and all excess cement was extruded and removed.? Knee was taken into full extension? to clear all excess cement was removed.? Warm saline was placed over the joint.? I then towel clip patella and dried for cementation. cemented the patella into place.? This was all clamped and the cement was allowed to cure.? Thorough irrigation performed with pulse?lavage.? I then placed my periarticular injection while the cement was curing.? Once cured the knee was taken through range of motion and had excellent stability and gaps were balanced in flexion and extension.? Tourniquet was then deflated. hemostasis satisfactory with electrocautery.? Vancomycin powder was placed in wound bed for antibiotic infection prophylaxis. I then subsequently closed the capsule with Ethibond suture as well as a running strata fix suture.? Knee was then taken through range of motion 30 times.? Next the skin was then closed in?layered fashion of running stratifix sutures of deep and subcutenous tissue and skin.? ?closed in flexion and Prineo glue was then placed over the incision this allowed to cure.? Incision was covered with dakota, with ABDs soft roll and Brandon wrap.? Patient was then awakened from anesthesia and taken to PACU in stable condition. Disposition: Patient taken to PACU in stable condition will be admitted to the floor for pain control PT/OT weight-bear as tolerated?left?lower extremity dressing changes as needed, DVT prophylaxis. Pain control. Patient will receive appropriate postoperative antibiotics. patient will be seen today by the internal medicine team for medical management.? Patient will follow up with the office in 2 weeks.? Patient understands agrees with current plan.? All questions answered.
[2024-08-08] MEDS: ondansetron 2 mg/ML SDV 2 mL 4 MG IVP ×3 (16:50→18:39)
--- NOTE | 2024-08-08 16:51 | PM.PACU ---
PACU note Narrative: Patient is a 63-year-old female just underwent a left knee total arthroplasty. Pt transferred to PACU in stable condition. Dressing is dry. pt is awake and alert. pt can wiggle toes and plantarflex and dorsiflex foot. Distal pulses are palpable toes are warm and well-perfused. Cap refill is normal and under 2 seconds. Sensation to foot is intact. Pain is controlled. Exam: awake Disposition: admitted
--- NOTE | 2024-08-08 16:52 | P.BOP_ITS ---
Date of Procedure: [August 08, 2024] Surgeon: [Dr. Petersen DO] Casket Coverer(s): [Krystian Petersen PA-C] Procedure(s) performed: [Orthopedic hardware removal Left knee total arthroplasty with Farhan robotic assist.] Findings of the procedure(s): [Left knee degenerative joint disease. Orthopedic hardware was intact and in place 2 screws were removed. Procedure went well and as planned.] Estimated blood loss: [50 mL] Specimen(s) removed: [N/A] Post-operative diagnosis: [Left knee degenerative joint disease.]
--- NOTE | 2024-08-08 17:01 | P.CONIM_ITS ---
Providers/Reason For Consult 2 Consulting Physician/Specialty*: orthopedic Reason for Consult*: medical managment Attending Physician: Hunter Petersen DO Primary Care Provider: Valery Rodriguez MD History of Present Illness History of Present Illness Mary Baugh is a 63 year old female with a past medical history of pheochromocytoma, remi danlos syndrome, who presents to [facility] who presents to [facility] for left knee arthroplasty patient was seen in postop recovery, she has no significant complaints no chest pain, no palpitations, shortness of breath Review of Systems 2 Card: Denies: chest pain Resp: Denies: dyspnea Medications/Allergies Home Medications Medication Instructions Recorded Confirmed Last Taken Type loratadine 10 mg tablet (Allergy 10 mg PO DAILY 05/29/22 08/07/24 08/03/24 History Relief (loratadine)) albuterol sulfate 90 mcg/actuation 2 puff inhalation Q6H PRN 04/25/24 08/07/24 08/08/24 07:00 Rx aerosol inhaler shortness of breath or wheezing #8.5 grams lisinopril 20 20 - 25 tab PO QPM 08/04/24 08/07/24 08/07/24 19:00 History mg-hydrochlorothiazide 25 mg tablet Allergies Allergy/AdvReac Type Severity Reaction Status Date / Time cephalexin [From Keflex] Allergy rash Verified 07/27/24 09:00 codeine Allergy ALGY-Rash Verified 07/27/24 09:00 Penicillins Allergy ALGY-Rash Verified 07/27/24 09:00 Sulfa (Sulfonamide Allergy ALGY-Rash Verified 07/27/24 09:00 Antibiotics) Current Medications Generic Name Dose Route Start Last Admin Trade Name Freq PRN Reason Stop Dose Admin Sodium Chloride 1,000 mls @ 30 mls/hr 08/08/24 10:45 08/08/24 12:52 Sodium Chloride 0.9% IV 08/09/24 10:44 30 mls/hr .Q24H ROB Administration Midazolam HCl 2 mg 08/08/24 10:32 08/08/24 12:37 Midazolam 1 Mg/Ml Inj 2 Ml IVP 2 mg Q5M PRN Administration Preop Anxiety Ondansetron HCl 4 mg 08/08/24 10:32 08/08/24 16:50 Ondansetron 2 Mg/Ml Sdv 2 Ml IVP 4 mg Q5M PRN Administration NAUSEA AND VOMITING PFSH Acute 2 PFSH: Medical History Seasonal allergies Remi-Danlos syndrome Hypertension Surgical History History of carpal tunnel repair History of ankle surgery left History of repair of rectocele History of hysterectomy History of arthroscopy of left knee History of total knee arthroplasty right History of cholecystectomy Family History Sister Stroke Diabetes Hypertension Thyroid disease Mother Breast cancer Denies family history of Colon cancer Ovarian cancer Heart disease Hypercholesteremia Uterine cancer Social History Smoking and tobacco/nicotine status: never used tobacco/nicotine Second hand smoke exposure: No Alcohol intake: never Substance/Drug Use: never Vitals/I&O/Wt Last Vital Signs Temp 98.6 F 08/08/24 16:36 Pulse 87 08/08/24 16:56 Resp 16 08/08/24 16:56 BP 119/61 08/08/24 16:56 Pulse Ox 92 08/08/24 16:56 O2 Del Method Room Air 08/08/24 16:56 08/08/24 08/08/24 08/08/24 06:59 14:59 22:59 Intake Total 850 / 850 0 / 850 Output Total 250 / 250 Balance 850 / 850 -250 / 600 Weight last 48 hrs Weight 77.111 kg Physical Exam 2 Const: COMMON NORMALS: no acute distress ORIENTATION/CONSCIOUSNESS: Yes awake, Yes oriented to person and Yes oriented to place Resp: COMMON NORMALS: normal respiratory effort, No retractions, No use of accessory muscles and clear to auscultation bilaterally AUSCULTATION: clear to auscultation bilaterally Cardio: COMMON NORMALS: regular rate, regular rhythm, S1 normal heart sound present and S2 normal heart sound present RATE: regular rate RHYTHM: r egular rhythm HEART SOUNDS: S1 normal heart sound present and S2 normal heart sound present GI: COMMON NORMALS: Normal to inspection, nondistended, normoactive bowel sounds present and non-tender Extremity: COMMON NORMALS: no pedal edema NARRATIVE EXTREMITY EXAM: Left knee wrapped Neuro: SENSORIUM/ORIENTATION: Yes oriented to person and Yes oriented to place Psych: COMMON NORMALS: mental status grossly normal Urinary Catheter Management: Benedict: Cath Placed During This Visit: yes Urinary Catheter Date of Insertion: 08/08/24 Urinary Catheter Time of Insertion: 13:50 Data 08/08/24 11:20 08/08/24 11:20 A&P Assessment and plan (1) Hypertension: (2) Pheochromocytoma: (3) S/P left knee surgery: Plan Left total knee arthroplasty ? Plan ? Pain control and anticoagulation as per orthopedic team ? PT OT Hypertension, continue home blood pressure medications tomorrow Consult Attestations 2 Medical Necessity Statement: Patient requires hospitalization, for left knee arthroplasty Diagnoses Hypertension I10 Pheochromocytoma D35.00 S/P left knee surgery Z98.890
--- NOTE | 2024-08-08 17:05 | ANE.PACU2 ---
Inpatient post-anesthesia follow up: Airway intact: Yes Vital signs: Temperature 97.5 F Pulse Rate 75 Respiratory Rate 18 Blood Pressure 108/60 Pulse Oximetry 97 Oxygen Delivery Me thod Room Air Oxygen Flow Rate Fraction of Inspir ed Oxygen Hydration adequate: Yes Nausea and vomiting: No Pain level: 1 Mental status: Baseline
[2024-08-08] MEDS: lisinopril 20 mg Tablet PO (18:34)
[2024-08-08] MEDS: mupirocin oint 22 gm 1 APPLIC NASAL (18:34)
[2024-08-08] MEDS: ketorolac 30 mg/mL INJ 15 MG IVP (18:35)
[2024-08-08] MEDS: iron polysaccharide complex 150 mg Capsule PO (18:35)
[2024-08-08] MEDS: oxyCODONE 5 mg IR Tab/Cap PO (18:36)
[2024-08-08] MEDS: docusate sodium 100 mg Capsule PO (18:37)
[2024-08-08] MEDS: hydroCHLOROthiazide 25 mg Tablet PO (18:37)
[2024-08-08] MEDS: calcium carb-vit d 600mg/400unit 1 Tablet 1 EACH PO (18:37)
[2024-08-08] MEDS: lactated ringers 1,000 ML 75 ML IV (18:38)
[2024-08-08] MEDS: tranexamic acid 1,000 MG/100 ML PREMIX 600 MG IV (18:38)
[2024-08-08] MEDS: chlorhexidine gluconate 0.12% Btl 473 mL 30 ML MUCOUS MEM ×2 (18:40→20:27)
--- NOTE | 2024-08-08 19:58 | PC.NURSE ---
pt has $21 dollars in wallet in room witness counted 21 with me.
[2024-08-08] MEDS: clindamycin 900 MG/50 ML PREMIX 100 MG IV (22:20)
[2024-08-09 00:32] VITALS: BP 122/71; PULSE 84; RESP 16; TEMP 36.9; O2SAT 93
[2024-08-09] MEDS: acetaminophen 1,000 MG/100 ML PIGGYBACK 400 MG IV ×2 (03:03→10:35)
[2024-08-09] MEDS: ketorolac 30 mg/mL INJ 15 MG IVP ×2 (03:10→10:36)
[2024-08-09 03:58] VITALS: BP 109/66; PULSE 84; RESP 17; TEMP 37; O2SAT 95
[2024-08-09 05:38] LABS: Basophils % 0.1 %; Hematocrit 31.8 % (36-47); Lymphocytes # 0.7 10^3/uL (0.8-4.8); Lymphocytes % 8.7 %; Mean Corpuscular HGB Conc 33.3 g/dL (30-55); Mean Corpuscular Hemoglobin 29.8 pg (27-33); Mean Corpuscular Volume 89.3 fl (85-98); Mean Platelet Volume 10.4 fL (7.4-10.4); Monocytes # 0.6 10^3/uL (0.2-0.9); Monocytes % 6.9 %; Neutrophils # 7.03 10^3/uL (1.8-7.7); Neutrophils % 83.7 %; Nucleated Red Blood Cells % 0 %; Platelet Count 227 10^3/cmm (157-399); Red Blood Count 3.56 10^6/uL (3.85-5.65); Red Cell Distribution Width 12.3 % (12.1-15.1)
[2024-08-09 05:58] LABS: Anion Gap 13.3 (5-19); Blood Urea Nitrogen 10 mg/dL (8-23); Calcium 8.5 mg/dL (8.5-10.5); Carbon Dioxide 26 mmol/L (22-29); Chloride 99 mmol/L (98-107); Creatinine Clr Calc Pharmacy 73.2542; Glomerular Filtration Rate 72.2 mL/min (90-130); Glucose 130 mg/dL (65-115); Osmolality Calculated 281 mOsm/kg (285-295); Potassium 3.3 mmol/L (3.5-5.1); Sodium 135 mmol/L (136-145)
[2024-08-09] MEDS: clindamycin 900 MG/50 ML PREMIX 100 MG IV ×2 (06:01→13:45)
[2024-08-09 06:06] VITALS: RESP 18
[2024-08-09] MEDS: oxyCODONE 5 mg IR Tab/Cap PO (06:06)
[2024-08-09 07:43] VITALS: BP 108/60; PULSE 75; RESP 18; TEMP 36.4; O2SAT 97
[2024-08-09] MEDS: apixaban 5 mg Tablet 2.5 MG PO (08:22)
[2024-08-09] MEDS: docusate sodium 100 mg Capsule PO (08:23)
[2024-08-09] MEDS: multivitamin therapeutic Tablet 1 TAB PO (08:23)
[2024-08-09] MEDS: TRAMadol 50 mg Tablet PO (08:23)
[2024-08-09] MEDS: calcium carb-vit d 600mg/400unit 1 Tablet 1 EACH PO (08:23)
[2024-08-09] MEDS: iron polysaccharide complex 150 mg Capsule PO (08:23)
[2024-08-09] MEDS: chlorhexidine gluconate 0.12% Btl 473 mL 30 ML MUCOUS MEM ×2 (08:24→12:18)
[2024-08-09] MEDS: mupirocin oint 22 gm 1 APPLIC NASAL (08:24)
[2024-08-09] MEDS: lactated ringers 1,000 ML 75 ML IV (08:24)
[2024-08-09] MEDS: potassium chloride ER 20 mEq Tablet 40 MEQ PO (09:31)
--- NOTE | 2024-08-09 11:16 | P.PN_ITS ---
Subjective 2 Subjective: Patient was seen this morning, she denies any chest pain, no palpitations, no shortness of breath, no headache, blurry vision, she will be discharged home today, discussed her blood pressure is a bit soft overnight, and this morning, discussed rechecking her blood pressure this evening, if her systolic is less than 120 and her diastolic is less than 80, she can hold her blood pressure medications for 24 hours, resume tomorrow, discharge on Eliquis, monitor for risk of bleeding, monitor for bloody or black stools, trauma or fall, if so come back to hospital Vitals/I&O/Wt Last Vital Signs Temp 97.5 F L 08/09/24 07:43 Pulse 75 08/09/24 07:43 Resp 18 08/09/24 07:43 BP 108/60 08/09/24 07:43 Pulse Ox 97 08/09/24 07:43 O2 Del Method Room Air 08/09/24 07:43 08/08/24 08/09/24 08/09/24 22:59 06:59 14:59 Intake Total 818.75 / 1668.75 1171.25 / 2840.00 845 / 845 Output Total 650 / 650 500 / 1150 Balance 168.75 / 1018.75 671.25 / 1690.00 845 / 845 Weight last 48 hrs Weight 77.791 kg Weight 77.111 kg Weight 77.111 kg Physical Exam 2 Const: COMMON NORMALS: no acute distress and patient oriented x3 Resp: COMMON NORMALS: normal respiratory effort, No retractions, No use of accessory muscles and clear to auscultation bilaterally AUSCULTATION: clear to auscultation bilaterally Cardio: COMMON NORMALS: regular rate, regular rhythm, S1 normal heart sound present and S2 normal heart sound present RATE: regular rate RHYTHM: r egular rhythm HEART SOUNDS: S1 normal heart sound present and S2 normal heart sound present GI: COMMON NORMALS: Normal to inspection, nondistended, normoactive bowel sounds present and non-tender Extremity: COMMON NORMALS: no pedal edema NARRATIVE EXTREMITY EXAM: Left knee no binder Neuro: COMMON NORMALS: patient oriented x3 Psych: COMMON NORMALS: mental status grossly normal Urinary Catheter Management: Benedict: Cath Placed During This Visit: yes, but has since been removed by the nurse Reason for Continuing Indwelling Catheter: Perioperative Use in Selected Surgeries Urinary Catheter Date of Insertion: 08/08/24 Urinary Catheter Time of Insertion: 13:50 Date Urinary Catheter Removed: 08/09/24 Time Urinary Catheter Discontinued: 06:12 Data 08/09/24 05:00 08/09/24 05:00 A&P Assessment and plan (1) Hypertension: (2) Pheochromocytoma: (3) S/P left knee surgery: Plan Left total knee arthroplasty ? Plan ? Pain control and anticoagulation as per orthopedic team ? PT OT Hypertension, continue home blood pressure medications Attestations 2 Medical Necessity Statement*: patient will be discharged today Diagnoses Hypertension I10 Pheochromocytoma D35.00 S/P left knee surgery Z98.890
[2024-08-09 11:31] VITALS: BP 100/61; PULSE 76; RESP 17; TEMP 36.8; O2SAT 96
--- NOTE | 2024-08-09 12:22 | PC.OT ---
OT evaluation attempted with pt declining services due to high level of function. Will attempt again another time if necessary due to decrease in independence.
[2024-08-09] MEDS: VANCOMYCIN ADD-Vantage 1,000 MG in 0.9% NaCl ADD-Vantage 250 ML 250 MG IV (13:14)
--- NOTE | 2024-08-09 13:20 | PM.DCS ---
Discharge Providers Date of Admission: 08/08/24 15:30 Date of Discharge: August 09, 2024 Attending Provider at Admission: Hunter Petersen DO Attending Provider at Discharge: Hunter Petersen DO Consults: Dr. Olguin?hospitalist Primary Care Provider: Valery Rodriguez MD Diagnoses at Discharge Discharge Diagnosis (1) Hypertension: Status: Chronic (2) Pheochromocytoma: Status: Chronic (3) S/P left knee surgery: Status: Acute Reason for Visit Reason for Visit: M25.562 Brief History: Status post left total knee arthroplasty with removal deep orthopedic hardware Hospital Course Hospital Course Patient presented to the preoperative holding area with plan for left total knee arthroplasty with removal orthopedic hardware after patient has been worked up in the outpatient setting for failed conservative treatment of left knee degenerative joint disease. Once cleared by anesthesia for surgery patient subsequently was taken back to the operative suite underwent anesthesia per anesthesia department and then subsequently underwent a left total knee arthroplasty with removal deep orthopedic hardware. Procedure was performed without any complications patient was taken to PACU in stable condition patient recovered well in PACU and then was admitted to the floor postoperatively internal medicine was consulted and on board for medical management and assistance with care. Patient received appropriate PT/OT, postoperative antibiotics, postoperative TXA, pain control, postoperative DVT prophylaxis. Elevation and ice. Patient encouraged for knee range of motion allowed weightbearing as tolerated to the operative lower extremity. Dressing was changed as needed, labs were monitored daily. Patient recovered well postoperatively and worked well and progressed well with therapy. It was determined on postoperative day 1 the patient was stable for discharge from an orthopedic standpoint and medicine. Patient was comfortable with discharge and plan was discharged home. Patient received appropriate discharge instructions as well as pain medication and DVT prophylaxis postoperatively. Given appropriate instructions for dressing management. Patient will follow-up with Dr. Petersen/orthopedics in the office in 2 weeks. All questions answered. Understand if there is any issues questions or concerns and contact the office. Physical Exam Narrative: Examination of the left knee dressings on in place clean dry and intact sensations intact light touch distally. Distal pulses are palpable calf soft nontender compartment soft compressible. She is able to wiggle toes plantarflex and dorsiflex ankle sensations intact light touch distally. Normal postoperative swelling and tenderness palpation about the left knee. Urinary Catheter Management: Benedict: Cath Placed During This Visit: yes, but has since been removed by the nurse Reason for Continuing Indwelling Catheter: Perioperative Use in Selected Surgeries Urinary Catheter Date of Insertion: 08/08/24 Urinary Catheter Time of Insertion: 13:50 Date Urinary Catheter Removed: 08/09/24 Time Urinary Catheter Discontinued: 06:12 Discharge Data Studies Completed and Pending Completed Studies During Hospitalization Category Date Time Status XR knee LT 1-2V [id number] Routine Exams 08/08/24 16:21 Completed Pending at discharge Category Date Time Status Basic Metabolic Panel AM LABS Lab 08/10/24 04:00 Ordered Basic Metabolic Panel AM LABS Lab 08/11/24 04:00 Ordered Complete Blood Count w/Auto AM LABS Lab 08/10/24 04:00 Ordered Complete Blood Count w/Auto AM LABS Lab 08/11/24 04:00 Ordered Retype for Patiets ABO/Rh Routine Lab 08/09/24 06:03 Ordered Radiology Impressions Knee X-Ray 08/08/24 16:21 IMPRESSION: Postoperative findings Laboratory Results WBC 8.40 10^3/uL (3.29-11.43) 08/09/24 05:00 RBC 3.56 10^6/uL (3.85-5.65) L 08/09/24 05:00 Hgb 10.60 g/dL (11.27-16.99) L 08/09/24 05:00 Hct 31.8 % (36-47) L 08/09/24 05:00 MCV 89.3 fl (85-98) 08/09/24 05:00 MCH 29.8 pg (27-33) 08/09/24 05:00 MCHC 33.3 g/dL (30-55) 08/09/24 05:00 RDW 12.3 % (12.1-15.1) 08/09/24 05:00 Plt Count 227 10^3/cmm (157-399) 08/09/24 05:00 MPV 10.4 fL (7.4-10.4) 08/09/24 05:00 Neut % (Auto) 83.7 % 08/09/24 05:00 Lymph % (Auto) 8.7 % 08/09/24 05:00 [place] % (Auto) 6.9 % 08/09/24 05:00 Eos % (Auto) 0.0 % 08/09/24 05:00 Baso % (Auto) 0.1 % 08/09/24 05:00 Neut # (Auto) 7.03 10^3/uL (1.8-7.7) 08/09/24 05:00 Lymph # (Auto) 0.7 10^3/uL (0.8-4.8) L 08/09/24 05:00 [place] # (Auto) 0.6 10^3/uL (0.2-0.9) 08/09/24 05:00 Eos # (Auto) 0.0 10^3/uL (0.0-0.8) 08/09/24 05:00 Baso # (Auto) 0.0 10^3/uL (0.0-0.1) 08/09/24 05:00 Nucleated RBC % (auto) 0 % 08/09/24 05:00 Nucleated RBCs # 0.0 /100WBC 08/09/24 05:00 Sodium 135 mmol/L (136-145) L 08/09/24 05:00 Potassium 3.3 mmol/L (3.5-5.1) L 08/09/24 05:00 Chloride 99 mmol/L (98-107) 08/09/24 05:00 Carbon Dioxide 26 mmol/L (22-29) 08/09/24 05:00 Anion Gap 13.3 (5-19) 08/09/24 05:00 BUN 10 mg/dL (8-23) 08/09/24 05:00 Creatinine 0.8 mg/dL (0.5-0.9) 08/09/24 05:00 GFR Calculation 72.2 mL/min (90-130) L 08/09/24 05:00 Glucose 130 mg/dL (65-115) H 08/09/24 05:00 Calculated Osmolality 281 mOsm/kg (285-295) L 08/09/24 05:00 Calcium 8.5 mg/dL (8.5-10.5) 08/09/24 05:00 Blood Type A Positive 08/09/24 05:00 Rho(D) Type Rh positive 08/09/24 05:00 Antibody Screen Negative 08/09/24 05:00 Vitals Last Vital Signs Temp 98.3 F 08/09/24 11:31 Pulse 76 08/09/24 11:31 Resp 17 08/09/24 11:31 BP 100/61 08/09/24 11:31 Pulse Ox 96 08/09/24 11:31 O2 Del Method Room Air 08/09/24 11:31 Discharge Plan Discharge Patient Disposition: Home Health Service Condition: Stable Prescriptions: New methocarbamol 500 mg tablet 500 mg PO TID PRN (Reason: muscle spasms/pain) 14 Days Qty: 42 0RF calcium carbonate-vitamin D3 [Calcium 600 + D(3)] 600 mg-10 mcg (400 unit) tablet 1 tab PO DAILY 30 Days Qty: 30 0RF Continued loratadine [Allergy Relief (loratadine)] 10 mg tablet 10 mg PO DAILY albuterol sulfate 90 mcg/actuation HFA aerosol inhaler 2 puff inhalation Q6H PRN (Reason: shortness of breath or wheezing) Qty: 8.5 0RF lisinopril-hydrochlorothiazide 20-25 mg tablet 20 - 25 tab PO QPM Rx Instructions: TAKE ONE TABLET BY MOUTH DAILY Discharge Orders: Discharge Order (Routine); Ordered 08/09/24 Ordered By: Hunter Petersen Other Ambulatory Orders: DME: Walker (Order) Location: None Selected Ordered By: Hunter Petersen Referrals: [facility] [Outside] [facility] Home Care ([facility]) [Outside] Hunter Petersen DO [Physician] - 08/23/24 8:30 am Discharge Diet: Regular Discharge Activity: Limit activity as instructed Patient Instructions: Oxycodone, Rapid Release (By mouth), Apixaban (By mouth), Acute Wound Care (DC), Total Knee Replacement (GEN), Opioid Safety, Post Anesthesia Care Activity Restrictions/Additional Instructions: Orthopedic discharge instructions: Lawson Dressing--Keep dressing on and dry. After 3 days you can remove some of the dressing and shower. disconnect battery pack when showering. Lawson dressing will stay on until follow up appt in 2 weeks. The battery pack for the dressing will at 5-7 days. Battery pack can be removed and discarded once batteries . Patient may weight-bear as tolerate to the operative extremity Utilize walker as needed Encourage knee range of motion Ice and elevate as needed for pain and swelling Take pain medication as prescribed Take antinausea medication as needed Take muscle relaxer as needed for muscle spasms Supplement with calcium vitamin D for bone health and healing Pain medication can cause constipation. take [id number] stool softeners and or MiraLAX. Take prescribed Eliquis twice daily for the next 14 days for blood clot prevention May supplement for pain with Tylenol [id number]-luduuzc as needed No baths or soaks Follow-up in the orthopedic office in 2 weeks Contact the office for any questions or concerns Discharge Attestations Time Spent in Discharge Care*: less than 30 min Quality Metrics Clinical Quality Measures [ No reported AMI, CVA or VTE this stay] Coding Level of Care Code Acute Code for Chg Fwd Diagnoses Hypertension I10 Pheochromocytoma D35.00 S/P left knee surgery Z98.890
[2024-08-09 15:18] VITALS: BP 100/61; PULSE 76; RESP 17; TEMP 36.8; O2SAT 96
== END 2024-08-09 15:20 | disposition home health service (06) ==
LOC: MEDSURG 15:30
PROVIDERS: Physician Assistant; Admitting Provider Student in an Organized Health Care Education/Training Program; PCP Family Medicine; Visit Provider Student in an Organized Health Care Education/Training Program
PROC: 8E0Y0CZ Robotic Assisted Procedure of Lower Extremity, Open Approach (ICD-10-PCS; CPT 27447; principal; 2024-08-08 13:30)
PROC: (CPT 27447; 2024-08-08 13:30)
DX: M17.12 Unilateral primary osteoarthritis, left knee (principal); I10 Essential (primary) hypertension; E11.9 Type 2 diabetes mellitus without complications
CPT/HCPCS: 27447; 20680; 20985; 36415; 51702; 73560; 80048; 85025; 86850; 86900; 97116; 97161; C1776; G0378; J0131; J1100; J1171; J1885; J2250; J2371; J2405; J2704; J2710; J2795; J3010; J3370; J3490; J7030; J7050; J7120

== ENCOUNTER → 2024-08-23 08:23 | Outpatient (BNVA) | payer OTHER, MEDICAID, SELFPAY | PROVIDERS: PCP Family Medicine; Visit Provider Physician Assistant | DX: Z98.890 Other specified postprocedural states (principal); Z96.652 Presence of left artificial knee joint | CPT/HCPCS: 73560; 73565 ==

== ENCOUNTER → 2024-09-29 08:52 | Outpatient (BNVA) | payer OTHER, MEDICAID, SELFPAY | PROVIDERS: PCP Family Medicine; Visit Provider Physician Assistant | DX: Z96.652 Presence of left artificial knee joint (principal); Z98.890 Other specified postprocedural states | CPT/HCPCS: 73560; 73565 ==

== ENCOUNTER → 2024-10-26 09:55 | Outpatient (BNVA) | payer OTHER, MEDICARE, MEDICAID, SELFPAY | PROVIDERS: PCP Family Medicine; Visit Provider Physician Assistant | DX: Z96.652 Presence of left artificial knee joint (principal); T84.82XA Fibrosis due to internal orthopedic prosthetic devices, implants and grafts, initial encounter; Y79.2 Prosthetic and other implants, materials and accessory orthopedic devices associated with adverse incidents | CPT/HCPCS: 73560; 73565 ==

== ENCOUNTER 2024-11-08 07:14 | Outpatient (CLI) | payer OTHER, MEDICARE, MEDICAID, SELFPAY ==
--- NOTE | 2024-11-08 07:24 | XRR_ITS ---
PROCEDURE INFORMATION: Exam: XR Lumbosacral Spine Exam date and time: 11/08/2024 7:31 AM Age: 64 years old Clinical indication: Low back pain; Pain in lower back on and off for 30 years, HX of jacob danlos syndrome; Additional info: Vertebrogenic low back pain, please comment on presence or absence of spinal instability TECHNIQUE: Imaging protocol: Radiologic exam of the lumbosacral spine. Views: 2 or 3 views. COMPARISON: No relevant prior studies available. FINDINGS: Bones/joints: Spinous processes are closely apposed. Up to moderate/severe diffuse facet arthropathy and up to moderate diffuse endplate hypertrophy. Severe loss of L5-S1 disc height and up to mild loss of remaining lumbar disc heights. Vertebral body heights are intact. No acute fracture, listhesis or pars defect. Diffuse osteopenia. Partially imaged mild thoracic spondylosis. No findings of dynamic translation on flexion/extension views Soft tissues: Cholecystectomy clips XR/XR lumbar spine f/e only [id number] IMPRESSION: No acute findings. See above
== END 2024-11-08 07:15 | disposition home or self-care (01) ==
PROVIDERS: PCP Family Medicine; Visit Provider Nurse Practitioner
DX: M54.51 Vertebrogenic low back pain (principal); M47.896 Other spondylosis, lumbar region; R93.7 Abnormal findings on diagnostic imaging of other parts of musculoskeletal system; M85.88 Other specified disorders of bone density and structure, other site; M47.894 Other spondylosis, thoracic region; Z90.49 Acquired absence of other specified parts of digestive tract
CPT/HCPCS: 72120

== ENCOUNTER 2024-11-24 06:46 | Emergency (ER) | payer OTHER, MEDICARE, MEDICAID, SELFPAY ==
[2024-11-24 06:51] VITALS: BP 124/93; PULSE 102; RESP 18; TEMP 35.7; O2SAT 99; BMI 27.4
--- NOTE | 2024-11-24 06:54 | ECG_ITS ---
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 Measurements Intervals [place] Rate: 102 P: 73 TX: 168 QRS: 72 QRSD: 84 T: 64 QT: 334 QTc: 435 Interpretive Statements SINUS TACHYCARDIA No previous ECG available for comparison Electronically Signed On 11-25-2024 19:07:40 CDT by Tian Ring M.D. [email or web address] [id number]
--- NOTE | 2024-11-24 07:16 | XRR_ITS ---
PROCEDURE INFORMATION: Exam: XR Chest Exam date and time: 11/24/2024 7:20 AM Age: 64 years old Clinical indication: Cough and dyspnea; SOB and cough for 2 days, hoarseness; Additional info: Dyspnea/cough TECHNIQUE: Imaging protocol: Radiologic exam of the chest. Views: 1 view. COMPARISON: CR XR shoulder RT min 2V* [id number] 10/06/2023 10:06 AM FINDINGS: Lungs: Unremarkable. No consolidation. Pleural spaces: Unremarkable. No pleural effusion. No pneumothorax. Heart/Mediastinum: Unremarkable. No cardiomegaly. Bones/joints: Unremarkable. XR/XR chest 1V portable [id number] IMPRESSION: No acute findings.
--- NOTE | 2024-11-24 07:17 | W.ED.CHESTPA ---
HPI - Chest Pain General: Chief Complaint: Chest Pain Stated Complaint: Chest pains, Shortness of Breath Time Seen by Provider: 11/24/24 07:15 History of Present Illness: 64-year-old female presents emergency room complaining of chest tightness and discomfort accompanied by cough. She has had rhinorrhea as well generalized muscle aches. She got she got exposed to something that irritated her asthma. She describes it as feeling like she has been putting on her chest. Cough has been nonproductive no hemoptysis no mucus. Associated symptoms: Deny abdominal pain, dyspnea or fever(s) Related Data Home Medications ?Medication ?Instructions ?Recorded ?Confirmed lisinopril 20 1 tab PO DAILY 11/24/24 11/24/24 mg-hydrochlorothiazide 25 mg tablet tizanidine 2 mg tablet 2 mg PO Q12H 11/24/24 11/24/24 Previous Rx's ?Medication ?Instructions ?Recorded levalbuterol HCl 1.25 mg/3 mL See Rx Instructions .Route 10/25/24 solution for nebulization .COMPLEX #75 mL tramadol 50 mg tablet 100 mg (2 x 50 mg) PO Q6H PRN pain 11/08/24 5 days #40 tabs Allergies Allergy/AdvReac Type Severity Reaction Status Date / Time cephalexin (From Keflex) Allergy rash Verified 11/24/24 06:53 codeine Allergy ALGY-Rash Verified 11/24/24 06:53 Penicillins Allergy ALGY-Rash Verified 11/24/24 06:53 Sulfa (Sulfonamide Allergy ALGY-Rash Verified 11/24/24 06:53 Antibiotics) Review of Systems Const: Denies: fever(s) or chills Card: Denies: chest pain Resp: Denies: dyspnea GI: Denies: abdominal pain : Denies: dysuria, urinary frequency or urinary urgency Musc: Denies: neck pain or back pain Skin/Breast: Denies: rash PFSH ED PFSH: Medical History Seasonal allergies Remi-Danlos syndrome Hypertension Surgical History History of carpal tunnel repair History of ankle surgery left History of repair of rectocele History of hysterectomy History of arthroscopy of left knee History of total knee arthroplasty right History of cholecystectomy Family History Sister Stroke Diabetes Hypertension Thyroid disease Mother Breast cancer Denies family history of Colon cancer Ovarian cancer Heart disease Hypercholesteremia Uterine cancer Social History Smoking and tobacco/nicotine status: never used tobacco/nicotine Second hand smoke exposure: No Alcohol intake: never Substance/Drug Use: never Physical Exam Const: GENERAL APPEARANCE: cooperative ORIENTATION/CONSCIOUSNESS: Yes awake, Yes oriented to person, Yes oriented to place and Yes oriented to time HENMT: COMMON NORMALS: normocephalic, atraumatic and hearing grossly normal bilaterally HEAD & SCALP: normocephalic and atraumatic Resp: COMMON NORMALS: normal respiratory effort, No retractions and No use of accessory muscles AUSCULTATION: wheezes Cardio: COMMON NORMALS: regular rate, regular rhythm and No murmurs present (Cardio) RATE: regular rate RHYTHM: regular rhythm GI: COMMON NORMALS: Soft to palpation and No hepatosplenomegaly present AUSCULTATION: Yes normoactive bowel sounds PALPATION: Yes Soft to palpation, No Tenderness to palpation present (GI), No Guarding due to palpation present (GI) and Yes No hepatosplenomegaly present Extremity: COMMON NORMALS: normal to inspection, capillary refill normal, no clubbing, cyanosis or edema, no calf tenderness and no pedal edema Neuro: SENSORIUM/ORIENTATION: Yes oriented to person, Yes oriented to place and Yes oriented to time Skin: COMMON NORMALS: no rashes or lesions noted GENERAL SKIN EXAM: no rashes or lesions noted Course Vital Signs: Vital signs: Vital Signs Temperature 96.2 F L 11/24/24 06:51 Pulse Rate 107 H 11/24/24 10:59 Respiratory Rate 16 11/24/24 08:14 Blood Pressure 140/77 11/24/24 10:59 Pulse Oximetry 93 11/24/24 10:59 Oxygen Delivery Me thod Room Air 11/24/24 08:30 MDM - Chest Pain Medical Decision Making Improved with nebulizers. RSV positive troponins negative EKGs reviewed as found in the chart no acute ST changes noted. Will discharge home. Supportive cares follow-up as needed. Medical Records I reviewed the patient's medical records. Lab Data I reviewed the patient's lab results. 11/24/24 07:08 11/24/24 07:44 Radiology Impressions Chest X-Ray 11/24/24 07:16 IMPRESSION: No acute findings. Laboratory Results WBC 5.54 10^3/uL (3.29-11.43) 11/24/24 07:08 RBC 4.97 10^6/uL (3.85-5.65) 11/24/24 07:08 Hgb 14.50 g/dL (11.27-16.99) 11/24/24 07:08 Hct 43.1 % (36-47) 11/24/24 07:08 MCV 86.7 fl (85-98) 11/24/24 07:08 MCH 29.2 pg (27-33) 11/24/24 07:08 MCHC 33.6 g/dL (30-55) 11/24/24 07:08 RDW 13.3 % (12.1-15.1) 11/24/24 07:08 Plt Count 247 10^3/cmm (157-399) 11/24/24 07:08 MPV 10.5 fL (7.4-10.4) H 11/24/24 07:08 Neut % (Auto) 77.4 % 11/24/24 07:08 Lymph % (Auto) 14.8 % 11/24/24 07:08 [place] % (Auto) 6.3 % 11/24/24 07:08 Eos % (Auto) 0.9 % 11/24/24 07:08 Baso % (Auto) 0.2 % 11/24/24 07:08 Neut # (Auto) 4.29 10^3/uL (1.8-7.7) 11/24/24 07:08 Lymph # (Auto) 0.8 10^3/uL (0.8-4.8) 11/24/24 07:08 [place] # (Auto) 0.4 10^3/uL (0.2-0.9) 11/24/24 07:08 Eos # (Auto) 0.1 10^3/uL (0.0-0.8) 11/24/24 07:08 Baso # (Auto) 0.0 10^3/uL (0.0-0.1) 11/24/24 07:08 Nucleated RBC % (auto) 0 % 11/24/24 07:08 Nucleated RBCs # 0.0 /100WBC 11/24/24 07:08 Sodium 133 mmol/L (136-145) L 11/24/24 07:44 Potassium 3.3 mmol/L (3.5-5.1) L 11/24/24 07:44 Chloride 94 mmol/L (98-107) L 11/24/24 07:44 Carbon Dioxide 24 mmol/L (22-29) 11/24/24 07:44 Anion Gap 18.3 (5-19) 11/24/24 07:44 BUN 8 mg/dL (8-23) 11/24/24 07:44 Creatinine 0.7 mg/dL (0.5-0.9) 11/24/24 07:44 GFR Calculation 84.0 mL/min (90-130) L 11/24/24 07:44 Glucose 85 mg/dL (65-115) 11/24/24 07:44 Calculated Osmolality 274 mOsm/kg (285-295) L 11/24/24 07:44 Calcium 9.9 mg/dL (8.5-10.5) 11/24/24 07:44 Total Bilirubin 0.6 mg/dL (0.15-1.2) 11/24/24 07:44 AST 19 U/L (0-32) 11/24/24 07:44 ALT 15 U/L (0-33) 11/24/24 07:44 Alkaline Phosphatase 80 U/L (35-105) 11/24/24 07:44 Troponin T Baseline < 6 ng/L (0-10) 11/24/24 07:44 Troponin T 120 Minute 6.00 ng/L (0-10) 11/24/24 09:38 Delta Troponin T 0.56554 ABS# (0-10) 11/24/24 09:38 Total Protein 7.9 g/dL (6.6-8.7) 11/24/24 07:44 Albumin 4.6 g/dL (3.5-5.2) 11/24/24 07:44 Globulin 3.3 g/dL (1.3-4.6) 11/24/24 07:44 Urine Color Yellow (Yellow) 11/24/24 09:54 Urine Appearance Clear (CLEAR) 11/24/24 09:54 Urine pH 7.5 (5-7) 11/24/24 09:54 Ur Specific Media 1.009 (1.005-1.030) 11/24/24 09:54 Urine Protein Negative (Negative) 11/24/24 09:54 Urine Glucose (UA) Negative (Normal) 11/24/24 09:54 Urine Ketones Negative (Negative) 11/24/24 09:54 Urine Blood Trace (Negative) A 11/24/24 09:54 Urine Nitrate Negative (Negative) 11/24/24 09:54 Urine Bilirubin Negative (Negative) 11/24/24 09:54 Urine Urobilinogen 0.2 mg/dL (Negative) 11/24/24 09:54 Ur Leukocyte Esterase 2+ (Negative) A 11/24/24 09:54 Urine RBC 0-2 /hpf (0-2) 11/24/24 09:54 Urine WBC 11-20 /hpf (0-5) H 11/24/24 09:54 Ur Squamous Epith Cells 0-5 /hpf (0-5) 11/24/24 09:54 Amorphous Sediment Not Reportable 11/24/24 09:54 Urine Bacteria 1+ /hpf (NONE) H 11/24/24 09:54 Hyaline Casts 0-4 /lpf H 11/24/24 09:54 Influenza A (PCR) Negative (Negative) 11/24/24 07:20 Influenza Type B (PCR) Negative (Negative) 11/24/24 07:20 RSV (PCR) Positive (Negative) A 11/24/24 07:20 SARS-CoV-2 (PCR) Negative (Negative) 11/24/24 07:20 All radiology interpretation(s) finalized by discharge Discharge Plan Discharge Patient Disposition: Home Clinical Impression: RSV bronchiolitis Condition: Stable Prescriptions: No Action levalbuterol HCl 1.25 mg/3 mL solution for nebulization See Rx Instructions .ROUTE .COMPLEX Qty: 75 0RF Dose Instruction: INHALE 1 VIAL VIA NEBULIZER EVERY 4 HOURS NEEDED FOR SHORTNESS OF BREATH OR WHEEZING Rx Instructions: INHALE 1 VIAL VIA NEBULIZER EVERY 4 HOURS NEEDED FOR SHORTNESS OF BREATH OR WHEEZING tramadol 50 mg tablet 100 mg PO Q6H PRN (Reason: pain) 5 Days Qty: 40 0RF tizanidine 2 mg tablet 2 mg PO Q12H lisinopril-hydrochlorothiazide 20-25 mg tablet 1 tab PO DAILY Rx Instructions: TAKE ONE TABLET BY MOUTH DAILY Discharge Orders: Discharge ED (Routine); Ordered 11/24/24 Ordered By: Cam Esteban Referrals: Valery Rodriguez MD [Primary Care Provider] - Discharge Diet: Usual diet Discharge Activity: Increase activity as tolerated Patient Instructions: RSV (Respiratory Syncytial Virus) Infection (ED), Opioid Safety, Pain Management Activity Restrictions/Additional Instructions: Thank you for choosing [facility] for your healthcare needs today. It is very important that you follow up as instructed or that you return to the Emergency Department should you have concerns or if your condition changes or worsens in any way. Print Language: Armenian Coding Level of Care Code ED Inside Sales Account Manager for Maicol Robertson
[2024-11-24 07:30] VITALS: BP 124/78; PULSE 97; O2SAT 94
[2024-11-24 07:36] LABS: Basophils % 0.2 %; Eosinophils # 0.1 10^3/uL (0.0-0.8); Eosinophils % 0.9 %; Hematocrit 43.1 % (36-47); Lymphocytes # 0.8 10^3/uL (0.8-4.8); Lymphocytes % 14.8 %; Mean Corpuscular HGB Conc 33.6 g/dL (30-55); Mean Corpuscular Hemoglobin 29.2 pg (27-33); Mean Corpuscular Volume 86.7 fl (85-98); Mean Platelet Volume 10.5 fL (7.4-10.4); Monocytes # 0.4 10^3/uL (0.2-0.9); Monocytes % 6.3 %; Neutrophils # 4.29 10^3/uL (1.8-7.7); Neutrophils % 77.4 %; Nucleated Red Blood Cells % 0 %; Platelet Count 247 10^3/cmm (157-399); Red Blood Count 4.97 10^6/uL (3.85-5.65); Red Cell Distribution Width 13.3 % (12.1-15.1); White Blood Count 5.54 10^3/uL (3.29-11.43)
[2024-11-24] MEDS: methylPREDNISolone sod succ 125 mg/2 mL INJ IM (07:49)
[2024-11-24 08:07] LABS: Troponin(5th) Baseline < 6 ng/L (0-10)
[2024-11-24 08:14] VITALS: PULSE 89; RESP 16; O2SAT 97
[2024-11-24] MEDS: ipratropium-albuterol 3 mL Neb INHALATION (08:14)
[2024-11-24 08:18] LABS: Influenza A NEGATIVE (Negative); Influenza B NEGATIVE (Negative); SARS-CoV-2 PCR NEGATIVE (Negative)
[2024-11-24 08:28] LABS: Respiratory Syncytial Virus Ce POSITIVE (Negative)
[2024-11-24 08:30] VITALS: BP 142/72; PULSE 104; O2SAT 98
[2024-11-24 08:58] LABS: Alanine Aminotransferase 15 U/L (0-33); Albumin Level 4.6 g/dL (3.5-5.2); Alkaline Phosphatase 80 U/L (35-105); Anion Gap 18.3 (5-19); Aspartate Amino Transferase 19 U/L (0-32); Calcium 9.9 mg/dL (8.5-10.5); Carbon Dioxide 24 mmol/L (22-29); Globulin 3.3 g/dL (1.3-4.6); Glucose 85 mg/dL (65-115); Total Bilirubin 0.6 mg/dL (0.15-1.2); Total Protein 7.9 g/dL (6.6-8.7)
[2024-11-24 09:06] LABS: Blood Urea Nitrogen 8 mg/dL (8-23); Chloride 94 mmol/L (98-107); Osmolality Calculated 274 mOsm/kg (285-295); Potassium 3.3 mmol/L (3.5-5.1); Sodium 133 mmol/L (136-145)
[2024-11-24 09:07] LABS: Creatinine Clr Calc Pharmacy 70.9852
--- NOTE | 2024-11-24 09:09 | ECG_ITS ---
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 Measurements Intervals [place] Rate: 102 P: 68 IN: 161 QRS: 65 QRSD: 90 T: 53 QT: 339 QTc: 443 Interpretive Statements SINUS TACHYCARDIA POSSIBLE ANTERIOR MYOCARDIAL INFARCTION , OF INDETERMINATE AGE [30 ms Q WAVE IN V3/V4, OR R < 0.2 mV IN V4] Compared to ECG 11/24/2024 06:54:37 Myocardial infarct finding now present Electronically Signed On 11-25-2024 19:23:54 CDT by Tian Ring M.D. [email or web address] [id number]
[2024-11-24 10:08] LABS: Troponin 5 2HR Delta 0.00001 ABS# (0-10)
[2024-11-24 10:21] LABS: Bilirubin Urine Negative (Negative); Blood Urine Trace (Negative); Glucose Urine UA Negative (Normal); Ketones Urine Negative (Negative); Leukocyte Esterase Urine 2+ (Negative); Nitrate Urine Negative (Negative); Protein Urine Negative (Negative); Specific Gravity, Urine 1.009 (1.005-1.030); Urine Appearance Clear (CLEAR); Urine Color Yellow (Yellow); Urobilinogen Urine 0.2 mg/dL (Negative); pH Urine 7.5 (5-7)
[2024-11-24 10:27] LABS: Add Urine Microscopic? YES; Bacteria Urine 1+ /hpf; Hyaline Casts Urine 0-4 /lpf; RBC Urine 0-2 /hpf (0-2); Squamous Epithelial Cell Urine 0-5 /hpf (0-5)
[2024-11-24 10:32] LABS: Add Urine Culture? No
[2024-11-24 10:59] VITALS: BP 140/77; PULSE 107; O2SAT 93
== END 2024-11-24 11:01 | disposition home or self-care (01) ==
PROVIDERS: Emergency Provider Family Medicine; PCP Family Medicine
DX: J21.0 Acute bronchiolitis due to respiratory syncytial virus (principal); Z11.52 Encounter for screening for COVID-19; I10 Essential (primary) hypertension
CPT/HCPCS: 36415; 71045; 80053; 81001; 84484; 85025; 87637; 93005; 94640; 96372; 99285; J2919; J9999

== ENCOUNTER 2024-12-08 10:15 | Emergency (ER) | payer OTHER, MEDICARE, MEDICAID, SELFPAY ==
--- NOTE | 2024-12-08 10:19 | ECG_ITS ---
[facility] 2024[facility]08 Pat Name: Mary Baugh Department: Room: Gender: Female [employer] Pro: : 1960 Requested By: Davie Muniz Order Number: [id number] Shamar MD: Evangelist Cummings M.D. Measurements Intervals [place] Rate: 76 P: 56 [place]: 186 QRS: 48 QRSD: 86 T: 49 QT: 380 QTc: 428 Interpretive Statements SINUS RHYTHM Compared to ECG 11/24/2024 09:09:49 Sinus tachycardia no longer present Myocardial infarct finding no longer present Electronically Signed On 12-08-2024 22:20:25 CDT by Evangelist Cummings M.D. [email or web address] [email or web address]
--- NOTE | 2024-12-08 10:19 | CT_ITS ---
WS: [id number] CT HEAD NONCONTRAST HISTORY: Symptoms of acute stroke, LEFT facial numbness. Headache. TECHNIQUE: Contiguous axial imaging performed through the brain. Bone and soft tissue windows. Sagittal and coronal reformats reviewed. All CT scans at [facility] use at least one of these dose optimization techniques: automated exposure control; mA and/or kV adjustment per patient size (includes targeted exams where dose is matched to clinical indication); or iterative reconstruction. DLP: 1034.75 mGy COMPARISON: 10/06/2023 No acute intracranial hemorrhage, midline shift or mass effect. Minimal atrophy and small vessel disease. Small perivascular space or remote lacunar infarct along the RIGHT external capsule is unchanged. Ventricles: Normal size with no hydrocephalus. Paranasal sinuses: Extensive bilateral mucosal thickening in the RIGHT maxillary sinuses. Mastoid air cells: Well pneumatized. Calvarium and scalp: Skull is intact with no soft tissue edema or swelling. CT/CT head thrombolytic [id number] IMPRESSION: 1. No acute intracranial hemorrhage or edema. 2. Stable noncontrast head CT since 10/06/2023. 3. Bilateral maxillary sinusitis. Notified Davie Muniz MD at 12/08/2024 10:32 AM.
[2024-12-08 10:20] VITALS: PULSE 73; TEMP 36.5; BMI 27.4
[2024-12-08 10:25] LABS: Glucose Point of Care 124 mg/dL (70-110)
--- NOTE | 2024-12-08 10:39 | MR_ITS ---
WS: [id number] MRI BRAIN WITHOUT CONTRAST HISTORY: dizzy COMPARISON: CT 12/08/2024 TECHNIQUE: Diffusion imaging, multiplanar T1, T2 and FLAIR imaging obtained. No evidence for acute infarct or hemorrhage. Hansen-white matter differentiation is normal. Very mild cerebral and cerebellar atrophy and mild small vessel disease. No prior lacunar infarcts. No hemorrhage. Ventricles and extra-axial spaces are normal. Dural venous sinuses and [place] demonstrate no abnormality on this unenhanced studies. Paranasal sinuses: Advanced bilateral maxillary sinus disease. Mixed heterogeneous signal within the sinuses with air-fluid levels. Paranasal sinus disease extends into the ethmoid air cells. Mastoid air cells: Normal. Calvarium and scalp: Intact. 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 MR/MR head wo con* [id number] IMPRESSION: 1. No acute infarct, hemorrhage or edema. 2. Mild cerebral and cerebellar atrophy with mild small vessel disease. 3. Advanced bilateral maxillary sinusitis.
--- NOTE | 2024-12-08 10:39 | MR_ITS ---
WS: [id number] MRA ANGIOGRAPHY [place] HISTORY: dizzy COMPARISON: None available. TECHNIQUE: 3-D MR angiography is performed of the [place]. All images are reviewed including source images. Distal vertebral and basilar arteries are intact with no significant stenosis or plaque. Posterior cerebral arteries are normal course and caliber. Posterior communicating arteries are both patent. Very mild narrowing of the intracranial carotid arteries cavernous sinuses and supraclinoid on the LEFT. No aneurysm or occlusions. Mild irregularity proximal RIGHT M1 segment. No occlusions or aneurysms within the middle cerebral arteries. No paucity of vessels distally. Anterior cerebral arteries are both patent. Anterior communicating artery is normal. MR/MR angio head wo con [id number] IMPRESSION: 1. Mild stenosis involving the distal intracranial carotid arteries through th e cavernous sinuses from atherosclerotic disease. No complete occlusion. 2. No cerebral artery aneurysm. 3. Mild RIGHT M1 segment atherosclerosis.
--- NOTE | 2024-12-08 10:42 | ED_ITS ---
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 She is having some numbness to the left side of her face and left side of her arm. She is brought over here as a stroke alert. She has no history of headache states she has been under a lot of stress is one of her family members on life support Associated symptoms: Reports headache(s); Deny chest pain, nausea or vomiting Related Data Home Medications ?Medication ?Instructions ?Recorded ?Confirmed lisinopril 20 1 tab PO DAILY 11/24/2411/12 mg-hydrochlorothiazide 25 mg tablet tizanidine 2 mg tablet 2 mg PO Q12H 11/24/24 Previous Rx's ?Medication ?Instructions ?Recorded tramadol 50 mg tablet 100 mg (2 x 50 mg) PO Q6H FL N pain 11/08/24 5 days #40 tabs levalbuterol HCl 1.25 mg/3 mL See Rx Instructions .Rou te 11/30/24 solution for nebulization .COMPLEX #75 mL aspirin 81 mg capsule 81 mg PO DAILY #30 caps 11/13 04/07 atorvastatin 80 mg tablet (Lipitor) 80 mg PO DAILY #30 tabs 12/08/24 Allergies Allergy/AdvReac Type Severity Reaction Status Date / Time cephalexin (From Keflex) Allergy rash Verified 11/24/24 06:53 codeine Allergy ALGY-Rash Verified 11/24/24 06:53 Penicillins Allergy ALGY-Rash Verified 11/24/24 06:53 Sulfa (Sulfonamide Allergy ALGY-Rash Verified 11/24/24 06:53 Antibiotics) Review of Systems 2 Const: Denies: fever(s), chills, body aches or change in appetite ENMT: Denies: throat pain or dental pain Card: Denies: chest pain Resp: Denies: dyspnea GI: Denies: abdominal pain, nausea, vomiting or diarrhea Musc: Denies: neck pain or back pain Skin/Breast: Denies: rash Neuro: Reports: headache(s), numbness in extremities and dizziness PFSH ED 2 PFSH: Medical History Seasonal allergies Remi-Danlos syndrome Hypertension Surgical History History of carpal tunnel repair History of ankle surgery left History of repair of rectocele History of hysterectomy History of arthroscopy of left knee History of total knee arthroplasty right History of cholecystectomy Family History Sister Stroke Diabetes Hypertension Thyroid disease Mother Breast cancer Denies family history of Colon cancer Ovarian cancer Heart disease Hypercholesteremia Uterine cancer Social History Smoking and tobacco/nicotine status: never used tobacco/nicotine Second hand smoke exposure: No Alcohol intake: never Substance/Drug Use: never NIH stroke score 2 NIHSS: Level Of Consciousness - 1a: 0 Level Of Consciousness Questions - 1b: Both Correct Level Of Consciousness Commands - 1c: Both Correct Best Gaze - 2: Normal Visual Davis - 3: No Visual Loss Facial Palsy - 4: N ormal Motor Arm Right - 5: No Drift Motor Arm Left - 5: No Drift Motor Leg Right - 6: No Drift Motor Leg Left - 6: No Drift Limb Ataxia - 7: A bsent Sensory - 8: Mild To Moderate Loss Best Language - 9: No Aphasia Dysarthia - 10: Normal Extinction And Inattention - 11: 0 Score: Total Score: 1 Physical Exam 2 Const: COMMON NORMALS: patient oriented x3 HENMT: COMMON NORMALS: normocephalic and atraumatic HEAD & SCALP: n ormocephalic and atraumatic Eye: COMMON NORMALS: Equal, round and reactive pupils present and EOMs intact bilaterally PUPIL: Yes Equal, round and reactive pupils present Neck/C-Spine: COMMON NORMALS: full ROM and supple Chest: COMMONS NORMALS: normal inspection of the chest and normal palpation of entire chest wall Resp: COMMON NORMALS: normal respiratory effort, No retractions, No use of accessory muscles and clear to auscultation bilaterally AUSCULTATION: clear to auscultation bilaterally Cardio: COMMON NORMALS: regular rate, regular rhythm and No murmurs present (Cardio) RATE: regular rate RHYTHM: regular rhythm GI: COMMON NORMALS: Normal to inspection, nondistended, normoactive bowel sounds present, Soft to palpation, non-tender and no masses PALPATION: Yes Soft to palpation Extremity: COMMON NORMALS: normal to inspection and full ROM Neuro: COMMON NORMALS: patient oriented x3, moves all extremities and no focal motor deficits MOTOR EXAM: 5/5 motor strength present throughout Psych: COMMON NORMALS: mental status grossly normal, Normal thought process present and cooperative THOUGHT PROCESS: Normal thought process present Skin: COMMON NORMALS: no rashes or lesions noted and no wounds GENERAL SKIN EXAM: no rashes or lesions noted Course 2 Vital Signs: Vital signs: Vital Signs Temperature 97.7 F 12/08/24 10:20 Pulse Rate 83 12/08/24 10:56 Respiratory Rate 16 12/08/24 10:56 Blood Pressure 131/64 12/08/24 10:56 Pulse Oximetry 100 12/08/24 10:56 Oxygen Delivery Me thod Room Air 12/08/24 10:56 MDM - Neuro Symptoms/Deficit Medical Decision Making Patient presents here with headaches and also some dizziness and left-sided paresthesias head CT was normal she was seen by neurologist Dr. Spicer who did not recommend lytics but did recommend an MR I. Her MRI here is negative no signs of acute stroke we will start on aspirin and statin and get her follow-up. Medical Records I reviewed the patient's medical records. Lab Data I reviewed the patient's lab results. 12/08/24 10:42 12/08/24 10:[address] 12/08/24 10:19 IMPRESSION: 1. No acute intracranial hemorrhage or edema. 2. Stable noncontrast head CT since 10/06/2023. 3. Bilateral maxillary sinusitis. Notified Davie Muniz MD at 12/08/2024 10:32 AM. Head MRI 12/08/24 10:39 IMPRESSION: 1. No acute infarct, hemorrhage or edema. 2. Mild cerebral and cerebellar atrophy with mild small vessel disease. 3. Advanced bilateral maxillary sinusitis. Head MRA 12/08/24 10:39 IMPRESSION: 1. Mild stenosis involving the distal intracranial carotid arteries through the cavernous sinuses from atherosclerotic disease. No complete occlusion. 2. No cerebral artery aneurysm. 3. Mild RIGHT M1 segment atherosclerosis. Laboratory Results WBC 8.63 10^3/uL (3.29-11.43) 12/08/24 10:42 RBC 4.21 10^6/uL (3.85-5.65) 12/08/24 10:42 Hgb 12.20 g/dL (11.27-16.99) 12/08/24 10:42 Hct 36.5 % (36-47) 12/08/24 10:42 MCV 86.7 fl (85-98) 12/08/24 10:42 MCH 29.0 pg (27-33) 12/08/24 10:42 MCHC 33.4 g/dL (30-55) 12/08/24 10:42 RDW 13.2 % (12.1-15.1) 12/08/24 10:42 Plt Count 264 10^3/cmm (157-399) 12/08/24 10:42 MPV 9.7 fL (7.4-10.4) 12/08/24 10:42 Neut % (Auto) 69.4 % 12/08/24 10:42 Lymph % (Auto) 22.1 % 12/08/24 10:42 Cameron % (Auto) 5.7 % 12/08/24 10:42 Eos % (Auto) 2.4 % 12/08/24 10:42 Baso % (Auto) 0.2 % 12/08/24 10:42 Neut # (Auto) 5.98 10^3/uL (1.8-7.7) 12/08/24 10:42 Lymph # (Auto) 1.9 10^3/uL (0.8-4.8) 12/08/24 10:42 Cameron # (Auto) 0.5 10^3/uL (0.2-0.9) 12/08/24 10:42 Eos # (Auto) 0.2 10^3/uL (0.0-0.8) 12/08/24 10:42 Baso # (Auto) 0.0 10^3/uL (0.0-0.1) 12/08/24 10:42 Nucleated RBC % (auto) 0 % 12/08/24 10:42 Nucleated RBCs # 0.0 /100WBC 12/08/24 10:42 PT 13.00 SECONDS (12.1-14.9) 12/08/24 10:42 INR 0.92 (0.8-1.2) 12/08/24 10:42 APTT 27.5 SECONDS (23.9-36.7) 12/08/24 10:42 Sodium 135 mmol/L (136-145) L 12/08/24 10:42 Potassium 3.3 mmol/L (3.5-5.1) L 12/08/24 10:42 Chloride 94 mmol/L (98-107) L 12/08/24 10:42 Carbon Dioxide 29 mmol/L (22-29) 12/08/24 10:42 Anion Gap 15.3 (5-19) 12/08/24 10:42 BUN 7 mg/dL (8-23) L 12/08/24 10:42 Creatinine 0.7 mg/dL (0.5-0.9) 12/08/24 10:42 GFR Calculation 84.0 mL/min (90-130) L 12/08/24 10:42 Glucose 126 mg/dL (65-115) H 12/08/24 10:42 POC Glucose 124 mg/dL (70-110) H 12/08/24 10:21 Calculated Osmolality 280 mOsm/kg (285-295) L 12/08/24 10:42 Calcium 9.2 mg/dL (8.5-10.5) 12/08/24 10:42 Total Bilirubin 0.4 mg/dL (0.15-1.2) 12/08/24 10:42 AST 15 U/L (0-32) 12/08/24 10:42 ALT 15 U/L (0-33) 12/08/24 10:42 Alkaline Phosphatase 67 U/L (35-105) 12/08/24 10:42 Total Protein 7.5 g/dL (6.6-8.7) 12/08/24 10:42 Albumin 4.2 g/dL (3.5-5.2) 12/08/24 10:42 Globulin 3.3 g/dL (1.3-4.6) 12/08/24 10:42 All radiology interpretation(s) finalized by discharge EKG Data EKG 1: I personally reviewed and interpreted this EKG as follows: EKG interpretation date: 12/08/24 EKG interpretation time: 10:38 Interpretation: nsr hr [address] elevation qrs 86 qtc 410 Discharge Plan Discharge Patient Disposition: Home Clinical Impression: Head ache, Dizziness, Paresthesia Condition: Stable Prescriptions: New aspirin 81 mg capsule 81 mg PO DAILY Qty: 30 0RF atorvastatin [Lipitor] 80 mg tablet 80 mg PO DAILY Qty: 30 0RF No Action tramadol 50 mg tablet 100 mg PO Q6H PRN (Reason: pain) 5 Days Qty: 40 0RF levalbuterol HCl 1.25 mg/3 mL solution for nebulization See Rx Instructions .ROUTE .COMPLEX Qty: 75 0RF Dose Instruction: INHALE ONE vial via NEBULIZER EVERY 4 HOURS NEEDED FOR SHORTNESS OF BREATH or wheezing Rx Instructions: INHALE ONE vial via NEBULIZER EVERY 4 HOURS NEEDED FOR SHORTNESS OF BREATH or wheezing tizanidine 2 mg tablet 2 mg PO Q12H lisinopril-hydrochlorothiazide 20-25 mg tablet 1 tab PO DAILY Rx Instructions: TAKE ONE TABLET BY MOUTH DAILY Discharge Orders: Discharge ED (Routine); Ordered 12/08/24 Ordered By: Davie Muniz Referrals: Valery Rodriguez MD [Primary Care Provider] - 4-7 days Discharge Diet: Advance as tolerated Discharge Activity: Resume usual activity Patient Instructions: Paresthesia (ED) Print Language: [place]ican Coding Level of Care Code ED 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
[2024-12-08 10:49] LABS: Basophils % 0.2 %; Eosinophils # 0.2 10^3/uL (0.0-0.8); Eosinophils % 2.4 %; Hematocrit 36.5 % (36-47); Lymphocytes # 1.9 10^3/uL (0.8-4.8); Lymphocytes % 22.1 %; Mean Corpuscular HGB Conc 33.4 g/dL (30-55); Mean Corpuscular Volume 86.7 fl (85-98); Mean Platelet Volume 9.7 fL (7.4-10.4); Monocytes # 0.5 10^3/uL (0.2-0.9); Monocytes % 5.7 %; Neutrophils # 5.98 10^3/uL (1.8-7.7); Neutrophils % 69.4 %; Nucleated Red Blood Cells % 0 %; Platelet Count 264 10^3/cmm (157-399); Red Blood Count 4.21 10^6/uL (3.85-5.65); Red Cell Distribution Width 13.2 % (12.1-15.1); White Blood Count 8.63 10^3/uL (3.29-11.43)
[2024-12-08] MEDS: ondansetron 2 mg/ML SDV 2 mL 4 MG IVP (10:52)
[2024-12-08] MEDS: meclizine 25 mg tablet 50 MG PO (10:52)
[2024-12-08 10:53] VITALS: BP 131/64; PULSE 80; RESP 20; O2SAT 100
[2024-12-08 10:56] VITALS: BP 131/64; PULSE 83; RESP 16; O2SAT 100
[2024-12-08 11:02] LABS: INR 0.92 (0.8-1.2); Partial Thromboplastin Time 27.5 SECONDS (23.9-36.7)
[2024-12-08 11:06] LABS: Alanine Aminotransferase 15 U/L (0-33); Albumin Level 4.2 g/dL (3.5-5.2); Alkaline Phosphatase 67 U/L (35-105); Anion Gap 15.3 (5-19); Aspartate Amino Transferase 15 U/L (0-32); Blood Urea Nitrogen 7 mg/dL (8-23); Calcium 9.2 mg/dL (8.5-10.5); Carbon Dioxide 29 mmol/L (22-29); Chloride 94 mmol/L (98-107); Creatinine Clr Calc Pharmacy 70.9852; Globulin 3.3 g/dL (1.3-4.6); Glucose 126 mg/dL (65-115); Osmolality Calculated 280 mOsm/kg (285-295); Potassium 3.3 mmol/L (3.5-5.1); Sodium 135 mmol/L (136-145); Total Bilirubin 0.4 mg/dL (0.15-1.2); Total Protein 7.5 g/dL (6.6-8.7)
[2024-12-08 13:07] LABS: Amphetamines Screen Urine Negative (Negative); Barbiturates Screen Urine Negative (Negative); Benzodiazepines Screen Urine Negative (Negative); Cocaine Screen Urine Negative (Negative); Opiate Screen Urine Negative (Negative); PCP Screen Urine Negative (Negative); THC Screen Urine Negative (Negative)
[2024-12-08 13:09] LABS: Bacteria Urine None Seen /hpf; RBC Urine 0-2 /hpf (0-2); Squamous Epithelial Cell Urine 0-5 /hpf (0-5); WBC Urine 0-5 /hpf (0-5)
[2024-12-08] MEDS: aspirin 81 mg Chew Tablet PO (13:10)
[2024-12-08 13:17] LABS: Add Urine Microscopic? YES; Bilirubin Urine Negative (Negative); Blood Urine Negative (Negative); Glucose Urine UA Negative (Normal); Ketones Urine Negative (Negative); Leukocyte Esterase Urine Trace (Negative); Nitrate Urine Negative (Negative); Protein Urine Negative (Negative); Specific Gravity, Urine 1.002 (1.005-1.030); Urine Appearance Error (CLEAR); Urine Color Yellow (Yellow); Urobilinogen Urine 0.2 mg/dL (Negative); pH Urine 6.5 (5-7)
[2024-12-08 13:18] VITALS: BP 133/74; PULSE 90; O2SAT 100
[2024-12-08 13:18] LABS: Add Urine Culture? No
--- NOTE | 2024-12-08 13:59 | DCPLANNER ---
messaged neuro for er f/u
--- NOTE | 2024-12-08 15:30 | P.PNCC_ITS ---
Stroke Alert Activation ED Arrival Date: 12/08/24 ED Arrival Time: 10:19 ED Physican at Bedside: 10:21 Last Known Normal/at Baseline: < 1 hour ago Other Last Known Well Infomation: A stroke alert was called at 1018 and I was on the phone with the physician about another emergency so I did not immediately answer. I was not on-call but Dr. Muniz called and asked that I come see the patient because it was a hyperacute situation and he knew I was in house. on his initial exam he found that the patient had mild dysarthria, and unsteady gait, and trace left facial weakness. I came to the bedside and examined the patient and found that her stroke scale score was 0-1. She was complaining of dizziness and had left beating nystagmus on right gaze and her gait was a little unsteady so I felt th at she needed to have an MRI to rule out an evolving posterior circulation stroke. That was done and it was negative. Stroke Alert Activated by: Triage Stroke Alert Activation Time: 10:18 Stroke MD @ Bedside Date: 12/08/24 Stroke MD @ Bedside Time: 10: NIH Stroke Scale Time: 10:25 NIH stroke score NIHSS: Level Of Consciousness - 1a: 0 Level Of Consciousness Questions - 1b: Both Correct Level Of Consciousness Commands - 1c: Both Correct Best Gaze - 2: Normal ( nystagmus on right gaze) Visual Davis - 3: No Visual Loss Facial Palsy - 4: Normal Motor Arm Right - 5: No Drift Motor Arm Left - 5: No Drift Motor Leg Right - 6: No Drift Motor Leg Left - 6: No Drift Limb Ataxia - 7: Absent Sensory - 8: Normal Best Language - 9: No Aphasia Dysarthia - 10: Normal Stroke Alert Data/Treatment Time to CT of Head: 10:19 CT Results Time: 10:32 CT Impression: 1. No acute intracranial hemorrhage or edema. 2. Stable noncontrast head CT since 09/15. 3. Bilateral maxillary sinusitis. Notified Davie Muniz MD at 12/08/2024 10:32 AM. Dictated By: Nuvia Bonner DO Signed By: Nuvia Bonner DO Signed Date/Time: 12/08/24 1033 Stroke Risk Factors: hypertension, diabetes mellitus and depression (stress over son's recent coma) tPA Contraindication: tPA Contraindication: Treatment not indcated tPA Admin Prior to Arrival: No Other Patient & Family Education: We will make an appointment for her in clinic. Discharged on aspirin and statin Other Information: MRI brain 1. No acute infarct, hemorrhage or breanna a. 2. Mild cerebral and cerebellar atrophy with mild small vessel disease. 3. Advanced bilateral maxillary sinusit is. MRA brain 1. Mild stenosis involving the distal i ntracranial carotid arteries through the cavernous sinuses from atherosclerotic disease. No complete occlusion. 2. No cerebral artery aneurysm. 3. Mild RIGHT M1 segment atherosclerosi s. Dictated By: Nuvia Bonner DO Signed By: Nuvia Bonner DO Signed Date/Time: 12/08/24 Critical Care Time Critical Care Time: 30 - 74 mins A&P Assessment and plan (1) TIA involving vertebral artery: although her maxillary sinusitis is fairly marked, it would not expect to cause vertigo. I am concerned that she had posterior circulation TIA. We will try to work her into the office fairly soon upon my return and in the meantime she should be on aspirin and atorvastatin. Treat her headache to resolution prior to discharge. Discussed with Dr. Muniz PDMP PDMP Reviewed: Not Reviewed Coding Level of Care Code Acute Code for Chg Fwd Diagnoses TIA involving vertebral artery G45.0
== END 2024-12-08 13:19 | disposition home or self-care (01) ==
PROVIDERS: Emergency Provider Emergency Medicine; PCP Family Medicine
DX: R51.9 Headache, unspecified (principal); R42 Dizziness and giddiness; R20.2 Paresthesia of skin; I10 Essential (primary) hypertension
CPT/HCPCS: 36416; 70450; 70544; 70551; 80053; 80306; 81001; 82962; 85025; 85610; 85730; 93005; 96374; 99285; J2405; J8597; J9999

== ENCOUNTER → 2024-12-23 09:40 | Outpatient (BNVA) | payer OTHER, MEDICARE, MEDICAID, SELFPAY | PROVIDERS: PCP Family Medicine; Visit Provider Physician Assistant | DX: T84.82XA Fibrosis due to internal orthopedic prosthetic devices, implants and grafts, initial encounter (principal); Z96.652 Presence of left artificial knee joint; S89.90XA Unspecified injury of unspecified lower leg, initial encounter; W17.1XXA Fall into storm drain or manhole, initial encounter; Y79.2 Prosthetic and other implants, materials and accessory orthopedic devices associated with adverse incidents | CPT/HCPCS: 73560; 73565 ==

== ENCOUNTER 2025-02-14 21:02 | Emergency (ER) | payer OTHER, MEDICARE, MEDICAID, SELFPAY ==
[2025-02-14 21:03] VITALS: BP 152/65; PULSE 94; RESP 17; TEMP 36.7; O2SAT 96; BMI 28.3
--- NOTE | 2025-02-14 21:25 | XRR_ITS ---
PROCEDURE INFORMATION: Exam: XR Chest Exam date and time: 02/14/2025 9:34 PM Age: 64 years old Clinical indication: Injury or trauma; Fall; Blunt trauma (contusions or hematomas); Additional info: Fall, left lower anterior/lateral rib pain TECHNIQUE: Imaging protocol: Radiologic exam of the chest. Views: 2 views. COMPARISON: CR XR chest 1V portable [id number] 11/24/2024 7:20 AM FINDINGS: Lungs: Unremarkable. No consolidation. Pleural spaces: Unremarkable. No pleural effusion. No pneumothorax. Heart/Mediastinum: Unremarkable. No cardiomegaly. Bones/joints: Unremarkable. XR/XR chest 2V insp/exp [id number] IMPRESSION: No acute findings.
--- NOTE | 2025-02-14 21:26 | XR_ITS ---
WS: [id number] XR chest 2V insp/exp [id number] REASON FOR EXAM: Protocol for diagnostic images FINDINGS: Chest is unchanged compared to 11/24/2024. Especially the diaphragmatic movement between inspiration and expiration. Normal heart and mediastinum. No acute pulmonary parenchymal or pleural abnormality. XR/XR chest 2V insp/exp [id number] IMPRESSION: Normal inspiration and expiration films with the chest stable in appearance com pared to 11/24/2024. No acute abnormality.
--- NOTE | 2025-02-14 21:26 | W.ED.FALL ---
HPI - Fall General: Chief Complaint: Fall Stated Complaint: FALL - LEFT RIB PAIN Time Seen by Provider: 02/14/25 21:25 History of Present Illness: 64-year-old female who presents the emergency room by ambulance after a fall. She says when she slipped and fell she twisted and felt a pop in her lower left anterior lateral ribs. She is not requiring oxygen. It hurts to breathe. Hurts to palpation. No other injuries. No blood thinners. No head injury. No altered mental status. Related Data Home Medications ?Medication ?Instructions ?Recorded ?Confirmed tizanidine 2 mg tablet 2 mg PO Q12H 11/24/24 12/23/24 Previous Rx's ?Medication ?Instructions ?Recorded tramadol 50 mg tablet 100 mg (2 x 50 mg) PO Q6H PRN pain 11/08/24 5 days #40 tabs aspirin 81 mg capsule 81 mg PO DAILY #30 caps 12/08/24 atorvastatin 80 mg tablet (Lipitor) 80 mg PO DAILY #30 tabs 12/08/24 levalbuterol HCl 1.25 mg/3 mL See Rx Instructions .Route 01/26/25 solution for nebulization .COMPLEX #75 mL lisinopril 20 See Rx Instructions .Route 01/26/25 mg-hydrochlorothiazide 25 mg tablet .COMPLEX #90 tabs hydrocodone 5 mg-acetaminophen 325 1 tab PO Q6H PRN pain #20 tabs 02/14/25 mg tablet ondansetron 4 mg disintegrating 4 mg PO Q8H PRN nausea and 02/14/25 tablet vomiting #10 tabs polyethylene glycol 3350 17 17 g PO DAILY #510 grams 02/14/25 gram/dose oral powder (Miralax) Allergies Allergy/AdvReac Type Severity Reaction Status Date / Time cephalexin (From Keflex) Allergy rash Verified 12/23/24 09:44 codeine Allergy ALGY-Rash Verified 12/23/24 09:44 Penicillins Allergy ALGY-Rash Verified 12/23/24 09:44 Sulfa (Sulfonamide Allergy ALGY-Rash Verified 12/23/24 09:44 Antibiotics) Review of Systems Narrative: Constitutional symptoms: Negative except as documented in HPI. Skin symptoms: Negative except as documented in HPI. Eye symptoms: Negative except as documented in HPI. ENMT symptoms: Negative except as documented in HPI. Respiratory symptoms: Negative except as documented in HPI. Cardiovascular symptoms: Negative except as documented in HPI. Gastrointestinal symptoms: Negative except as documented in HPI. Genitourinary symptoms: Negative except as documented in HPI. Musculoskeletal symptoms: Negative except as documented in HPI. Neurologic symptoms: Negative except as documented in HPI. Psychiatric symptoms: Negative except as documented in HPI. Endocrine symptoms: Negative except as documented in HPI. PFSH ED PFSH: Medical History Seasonal allergies Remi-Danlos syndrome Hypertension Surgical History History of carpal tunnel repair History of ankle surgery left History of repair of rectocele History of hysterectomy History of arthroscopy of left knee History of total knee arthroplasty right History of cholecystectomy Family History Sister Stroke Diabetes Hypertension Thyroid disease Mother Breast cancer Denies family history of Colon cancer Ovarian cancer Heart disease Hypercholesteremia Uterine cancer Social History Smoking and tobacco/nicotine status: never used tobacco/nicotine Second hand smoke exposure: No Alcohol intake: never Substance/Drug Use: never Physical Exam Narrative: EXAM NARRATIVE: General: Alert, no acute distress. Skin: Warm, dry. Head: Normocephalic, atraumatic. Neck: Supple, trachea midline. Eye: Extraocular movements are intact. Ears, nose, mouth and throat: mucosa moist. Cardiovascular: Regular, Normal peripheral perfusion. Respiratory: Lungs are clear to auscultation, respirations are non-labored, breath sounds are equal, Symmetrical chest wall expansion. Tenderness palpation left lower anterior lateral ribs just under the breast. Gastrointestinal: Soft, Nontender, Non distended Musculoskeletal: Normal ROM, no deformity. Neurological: Alert and oriented, No focal neurological deficit observed. Psychiatric: Cooperative, appropriate mood & affect. Course Vital Signs: Vital signs: Vital Signs Temperature 98.0 F 02/14/25 21:03 Pulse Rate 94 02/14/25 21:03 Respiratory Rate 17 02/14/25 21:03 Blood Pressure 152/65 02/14/25 21:03 Pulse Oximetry 96 02/14/25 21:03 Oxygen Delivery Me thod Room Air 02/14/25 21:03 MDM - Fall Medical Decision Making Chest x-ray: No obvious fractures or pneumothorax.No infiltrates. Films were interpreted by myself the emergency room provider and pending final radiology review. Assessment and plan: Rib contusion ?IV Dilaudid. [facility] for home. Incentive spirometry. - Discharged home - Discussed plan with patient. Answered any questions. - Evaluation and treatment of this problem were appropriate in the emergency setting. XR interpretation done by ED provider, pending radiology final review Discharge Plan Discharge Patient Disposition: Home Clinical Impression: Rib contusion Condition: Stable Prescriptions: New hydrocodone-acetaminophen 5-325 mg tablet 1 tab PO Q6H PRN (Reason: pain) Qty: 20 0RF polyethylene glycol 3350 [Miralax] 17 gram/dose powder 17 g PO DAILY Qty: 510 0RF Rx Instructions: Take 1 scoop daily while taking pain medications. ondansetron 4 mg tablet,disintegrating 4 mg PO Q8H PRN (Reason: nausea and vomiting) Qty: 10 0RF No Action tramadol 50 mg tablet 100 mg PO Q6H PRN (Reason: pain) 5 Days Qty: 40 0RF lisinopril-hydrochlorothiazide 20-25 mg tablet See Rx Instructions .ROUTE .COMPLEX Qty: 90 0RF Dose Instruction: TAKE ONE TABLET BY MOUTH DAILY Rx Instructions: TAKE ONE TABLET BY MOUTH DAILY levalbuterol HCl 1.25 mg/3 mL solution for nebulization See Rx Instructions .ROUTE .COMPLEX Qty: 75 0RF Dose Instruction: INHALE ONE vial via NEBULIZER EVERY 4 HOURS NEEDED FOR SHORTNESS OF BREATH or wheezing Rx Instructions: INHALE ONE vial via NEBULIZER EVERY 4 HOURS NEEDED FOR SHORTNESS OF BREATH or wheezing aspirin 81 mg capsule 81 mg PO DAILY Qty: 30 0RF atorvastatin [Lipitor] 80 mg tablet 80 mg PO DAILY Qty: 30 0RF tizanidine 2 mg tablet 2 mg PO Q12H Discharge Orders: Discharge ED (Routine); Ordered 02/14/25 Ordered By: Beulah Chatman Referrals: Valery Rodriguez MD [Primary Care Provider, Family Practice] Discharge Diet: Usual diet Discharge Activity: Increase activity as tolerated Patient Instructions: How to Use an Incentive Spirometer (ED), Rib Contusion (ED), Opioid Safety, Pain Management Activity Restrictions/Additional Instructions: Please use incentive spirometer 3-4 times a day to prevent pneumonia. Thank you for choosing [facility] for your healthcare needs today. You have been screened and evaluated and felt safe for discharge. Health conditions do change or evolve sometimes and as such it is important that you follow up with your Primary Doctor to be re checked, 3-5 days is a general good time frame for follow up. You are always welcome to return to the ED for re assessment if your symptoms are worsening or you have new concerns Print Language: Cook Islander Coding Level of Care Code ED Video Editor for Maicol Robertson
[2025-02-14] MEDS: HYDROmorphone 0.5 MG/0.5 ML INJ 1 MG IVP (23:08)
[2025-02-14] MEDS: ondansetron 2 mg/ML SDV 2 mL 4 MG IVP (23:10)
[2025-02-14] MEDS: HYDROcodone-acetaminophen 5-325 mg Tablet 2 TAB PO (23:10)
[2025-02-14 23:19] VITALS: BP 128/76; PULSE 71; RESP 16; O2SAT 95
== END 2025-02-14 23:20 | disposition home or self-care (01) ==
PROVIDERS: Emergency Provider Emergency Medicine; PCP Family Medicine
DX: S20.20XA Contusion of thorax, unspecified, initial encounter (principal); Z79.82 Long term (current) use of aspirin; I10 Essential (primary) hypertension; W19.XXXA Unspecified fall, initial encounter
CPT/HCPCS: 71046; 96374; 96375; 99284; J1171; J2405; J9999

== ENCOUNTER → 2025-02-15 09:39 | Outpatient (BNVA) | payer OTHER, MEDICARE, MEDICAID, SELFPAY | PROVIDERS: PCP Family Medicine; Visit Provider Student in an Organized Health Care Education/Training Program | DX: T84.82XA Fibrosis due to internal orthopedic prosthetic devices, implants and grafts, initial encounter (principal); Z96.652 Presence of left artificial knee joint; Y79.2 Prosthetic and other implants, materials and accessory orthopedic devices associated with adverse incidents | CPT/HCPCS: 73560; 73565 ==

== ENCOUNTER 2025-03-06 15:24 | Outpatient (CLI) | payer OTHER, MEDICARE, MEDICAID, SELFPAY ==
--- NOTE | 2025-03-06 15:30 | XR_ITS ---
WS: [id number] DEXA (DUAL ENERGY X-RAY ABSORPTIOMETRY) Bone mineral density was performed using a [employer] machine. HISTORY: osteopenia on lumbar xr COMPARISON: None available. Lumbar spine BMD (L1-L4): 1.220 g/cm2 T score: 0.3 Z score: 1.4 Total hip BMD: Left: 1.090 g/cm2. T score: 0.7 Z score: 1.5 Right: 1.050 g/cm2. T score: 0.3 Z score: 1.2 10 year probability of a major osteoporotic fracture is 11.1%. XR/XR DEXA axial skeleton* 69727 IMPRESSION: NORMAL BONE MINERAL DENSITY based upon the WHO classification for females.
== END 2025-03-06 15:25 | disposition home or self-care (01) ==
PROVIDERS: PCP Family Medicine; Visit Provider Family Medicine
DX: Z78.0 Asymptomatic menopausal state (principal)
CPT/HCPCS: 77080

== ENCOUNTER → 2025-04-12 08:42 | Outpatient (BNVA) | payer OTHER, MEDICARE, MEDICAID, SELFPAY | PROVIDERS: PCP Family Medicine; Visit Provider Physician Assistant | DX: Z96.652 Presence of left artificial knee joint (principal) | CPT/HCPCS: 73560; 73565 ==

== ENCOUNTER → 2025-04-18 14:38 | Outpatient (BNVA) | payer OTHER, MEDICARE, MEDICAID, SELFPAY | PROVIDERS: PCP Family Medicine; Visit Provider Family Medicine | DX: G47.62 Sleep related leg cramps (principal); R00.0 Tachycardia, unspecified; Z13.1 Encounter for screening for diabetes mellitus | CPT/HCPCS: 80048; 83036; 83735; 84443; 85025 ==

== ENCOUNTER → 2025-07-25 09:53 | Outpatient (BNVA) | payer OTHER, MEDICARE, MEDICAID, SELFPAY | PROVIDERS: PCP Family Medicine; Visit Provider Physician Assistant | DX: M75.102 Unspecified rotator cuff tear or rupture of left shoulder, not specified as traumatic (principal); M75.42 Impingement syndrome of left shoulder | CPT/HCPCS: 73030 ==

== ENCOUNTER 2025-07-27 09:55 | Emergency (ER) | payer OTHER, MEDICARE, MEDICAID, SELFPAY ==
--- OUTSIDE RECORDS SUMMARY | 2024-07-09 03:00 | XMS_ITS ---
Author Organization [facility] Address [address] [place] [address] Care Team Providers Care Price Changer Name Role Phone Zev Henson Primary Care Provider Unavailtrav phipps AbbieAfshan Unavailable [phone] Migration, Provider Unavailable Unavailable REASON FOR VISIT [facility] Encounters Encounter Location Date Provider Diagnosis Migrated_Facility 0 0 07/09/2024 Provider Migration Plan Of Treatment Next Appt Details Provider Name:Afshan Bowman Natalie Mcduffie, 10/03/2025 08:00:00 AM, [address] [place], [address], Progress Notes * Mary MCELROY ADOB:1960 (64 yo F)Acc No.[id number]:07/09/2024 Patient: Beth EUSEBIOFLETHCERMary :1960 A ge:63 Y S ex:Female Address:[address] [place] [address] [place] [address], [phone] Subjective: * Chief Complaints: * E [facility] * * Date:
--- OUTSIDE RECORDS SUMMARY | 2024-07-10 03:00 | XMS_ITS ---
Author Organization [facility] Address [address] [place] [address] Care Team Providers Care Rn Palliative Name Role Phone Zev Henson Primary Care Provider Unavailtrav phipps AbbieAfshan Unavailable Migration, Provider Unavailable Unavailable REASON FOR VISIT [facility] Encounters Encounter Location Date Provider Diagnosis Migrated_Facility 0 0 07/10/2024 Provider Migration Plan Of Treatment Next Appt Details Provider Name:Afshan Bowman Natalie Mcduffie, 10/03/2025 08:00:00 AM, [address] [place], [address], Progress Notes * Mary MCELROY ADOB:1960 (64 yo F)Acc No.[id number]:07/10/2024 Patient: Beth EUSEBIOFLETCHERMary :1960 A ge:63 Y S ex:Female Address:[address] [place] [address] [place] [address], [phone] Subjective: * Chief Complaints: * E MR-[place] * * Date:
--- OUTSIDE RECORDS SUMMARY | 2025-02-01 07:45 | XMS_ITS ---
Author Organization [facility] Address [address] [place] [address] Care Team Providers Care Analytical Lead Name Role Phone Zev Henson Primary Care Provider Unavailtrav phipps Abbie Afshan Unavailable Daniel Espinosa [phone] REASON FOR VISIT Cervicalgia/low back pain Encounters Encounter Location Date Provider Diagnosis [facility] [place] [address] [place] [address] 02/01/2025 Daniel Espinosa Plan Of Treatment Next Appt Details Provider Name:Afshan Bowman Natalie Mcduffie, 10/03/2025 08:00:00 AM, [address] [place], [address], Progress Notes * Mary MCELROY ADOB:1960 (64 yo F)Acc No.[id number]:02/01/2025 Progress Notes Patient: Mary Ching Provider: Ronny Espinosa MD :1960 A ge:64 Y S ex:Female Date:02/01/2025 Address:[address] [place] [id number] Pcp:Zev Henson Subjective: * Chief Complaints: * C ervicalgia/low back pain * Electronic signature of Daniel Espinosa MD on 07/27/2025 at 10:18 AM 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
--- OUTSIDE RECORDS SUMMARY | 2025-02-21 03:40 | XMS_ITS ---
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 Name Role Phone Zev Henson Primary Care Provider Barbara moise AbbieAfshan Omar REASON FOR VISIT Ref by MD Valery Rodriguez Encounters Encounter Location Date Provider Diagnosis [facility] [address] [place] [address] 02/21/2025 Afshan Leiva Chronic pain syndrome G89.4 Assessments Encounter Date Diagnosis (ICD Code) Assessment Notes Treatment Notes Treatment Clinical Notes Section Notes 02/21/2025 Chronic pain syndrome (ICD-10 - G89.4) Plan Of Treatment Next Appt Details Provider Name:Afshan Bowman Natalie Mcduffie, 10/03/2025 08:00:00 AM, [address] [place], [id number], History and Physical Notes * HPI (History of Present Illness) Category Sub-Category Detail Notes Category Not es Provider Note Interventions: Pertinent Imaging: Original HPI: Pain Details Pain Location ___ Duration ___ Onset ___ Frequency of Pain ___ Quality ___ Radiation ___ Severity of pain at its worst ___ Severity of pain at its best ___ Severity of average pain ___ Severity of pain right now ___ Worsening factors ___ Relieving factors ___ Associated symptoms ___ Severity of pain on medication ___ When did you last take your pain medicin e ___ Medication Details Do you have a lock b ox or safe place for medication away from minors and/or others? ___ Do you have any leftover pain medication building up at your house? ___ Do you understand that pain medication c an be addicting and can cause overdose? ___ Do you feel you can REDUCE the amount of medication you take today? ___ Opioid Assessment Tools Pill Count ___ Last Urine Drug Screen ___ Today's Rapid Urine Drug Screen ___ [place] Prescription Monitoring Program ___ SOAPP-R (Screener/Opioid Assessment for Patient) ___ Today's SOAPP-R Score ___ COMM (Current Opioid Misuse Measure) ___ Treatment History Caregivers you have visited ___ Test undergone in the past ___ Past medication you have taken ___ Treatments you have had ___ Were prior treatments of any help? ___ When was prior treatment started? ___ STOP-BANG Questionnaire Do you snore marcia dly (louder than talking or loud enough to be heard through closed doors)? ___ Do you often feel tired, fatigued, or sl eepy during the day? ___ Has anyone observed you stop breathing d uring your sleep ___ Do you have or are you being treated for high blood pressure? ___ BMI greater than 35 kg/m2? ___ Age over 50 years old? ___ Gender: Male ___ Neck circumference is measured greater t street 40cm? ___ Score ___ Oxygen ___ CPAP ___ Progress Notes * Mary MCELROY ADOB:1960 (64 yo F)Acc No.[id number]:02/21/2025 Progress Notes Patient: Mary Ching Provider: Kinza Leiva MD :1960 A ge:64 Y S ex:Female Date:02/21/2025 Address:[address] [place], [place] [id number] Pcp:Zev Henson Subjective: * Chief Complaints: * R ef by MD Valery Rodriguez * HPI: P ain Details: Pain Location _ __. Duration _ __. Onset _ __. Frequency of Pain _ __. Quality _ __. Radiation _ __. Severity of pain at its worst _ __. Severity of pain at its best _ __. Severity of pain on medication _ __. Severity of average pain _ __. Severity of pain right now _ __. Worsening factors _ __. Relieving factors _ __. Associated symptoms _ __. When did you last take your pain medicine _ __. M edication Details: Do you have a lock box or safe place for medication away from minors and/or others? _ __. Do you have any leftover pain medication building up at your house? _ __. Do you understand that pain medication can be addicting and can cause overdose? _ __. Do you feel you can REDUCE the amount of medication you take today? _ __. O pioid Assessment Tools: SOAPP-R (Screener/Opioid Assessment for Patient) _ __. Today's SOAPP-R Score _ __. COMM (Current Opioid Misuse Measure) _ __. Pill Count _ __. Last Urine Drug Screen _ __. Today's Rapid Urine Drug Screen _ __. [place] Prescription Monitoring Program _ __. T reatment History: Caregivers you have visited _ __. Test undergone in the past _ __. Past medication you have taken _ __. Treatments you have had _ __. Were prior treatments of any help? _ __. When was prior treatment started? _ __. S TOP-BANG Questionnaire: Do you snore loudly (louder than talking or loud enough to be heard through closed doors)? _ __. Do you often feel tired, fatigued, or sleepy during the day??___. Has anyone observed you stop breathing during your sleep _ __. Do you have or are you being treated for high blood pressure??___. BMI greater than 35 kg/m2? _ __. Age over 50 years old? _ __. Gender: Male _ __. Neck circumference is measured greater than 40cm? _ __.? Score _ __. Oxygen _ __. CPAP _ __. Berto mancia Note: Patient presents today to establish care. - - - - - - - - - - - - - - - - - - - - - - - - - - - - - - - - - - - - - - - - - Consent for chronic opioid therapy/clinic policies: HUGO: SOAPP-R: Physical Therapy: yes, dates: Bowel/bladder incontinence - d enies - - - - - - - - - - - - - - - - - - - - - - - - - - - - - - - - - - - - - - - - -. Interventions: Pertinent Imaging: Original HPI:. * ROS: G eneral - Multi System: Constitutional D eniesfever, fatigue, weight gain, weight loss, sleep difficulty. R espiratory D enies, cough, shortness of breath, COPD/emphysema, sleep apnea, wheezing, snoring. G astrointestinal?Denies, nausea, vomiting, constipation, diarrhea, abdominal pain. N eurologic D enies, headaches, numbness, weakness, memory loss, excessive sedation. P sychiatric D enies depression, anxiety, suicidal thoughts/actions, panic attacks. Assessment: * Assessment: 1. C hronic pain syndrome - G89.4 (Primary) Billing Information: * Procedure Codes: * Electronic signature of Rossi Leiva MD on 07/27/2025 at 10:18 AM FISHING CAPTAIN Sign off status: Pending * Provider: Kinza Leiva MD Date: 0 02/21/2025 Generated for Reji lynn/Fitz/eTransmitting on: 1 09/26/2024 10:18 AM FISHING CAPTAIN
[2025-07-27 09:58] VITALS: BP 129/85; PULSE 74; RESP 18; TEMP 36.7; O2SAT 100
--- NOTE | 2025-07-27 10:13 | CT_ITS ---
WS: [id number] CT HEAD NONCONTRAST HISTORY: cva TECHNIQUE: Contiguous axial imaging performed through the brain. Bone and soft tissue windows. Sagittal and coronal reformats reviewed. All CT scans at [facility] use at least one of these dose optimization techniques: automated exposure control; mA and/or kV adjustment per patient size (includes targeted exams where dose is matched to clinical indication); or iterative reconstruction. DLP: 1062.38 mGy.cm COMPARISON: 327 225 No acute intracranial hemorrhage, midline shift or mass effect. No atrophy or prior infarcts or herniation. Very mild small vessel disease. Ventricles: Normal size with no hydrocephalus. No inferior displacement of the cerebellar tonsils. Empty sella turcica. Paranasal sinuses: As visualized are clear. Mastoid air cells: Well pneumatized. Calvarium and scalp: Skull is intact with no soft tissue edema or swelling. CT/CT head wo con* 40075 IMPRESSION: 1. No acute intracranial hemorrhage or edema. 2. Mild small vessel changes. No prior infarct.
--- NOTE | 2025-07-27 10:13 | XR_ITS ---
WS: [id number] Exam: XR chest 1V portable [id number] Date/Time of Exam: 07/27/2025 10:13 AM Reason For Exam: cva Comparison 02/14/2025. Lungs are fully inflated and clear. Normal cardiomediastinal silhouette and regional bony elements. XR/XR chest 1V portable [id number] IMPRESSION: 1. Negative chest.
--- NOTE | 2025-07-27 10:14 | ECG_ITS ---
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 [id number]
--- OUTSIDE RECORDS SUMMARY | 2025-07-27 10:18 | XMS_ITS | Patient Health Record ---
Author Organization [facility] Address [address] [place] [address] Care Team Providers Care Psychological Operations Name Role Phone Zev Henson Primary Care Provider UnavailAfshan Calderon Unavailable Cristhian Vick Unavailable [phone] Daniel Espinosa Unavailable [phone] Allergies Allergen (clinical drug ingredient) Drug/Non Drug Allergy documented on EMR Reaction Allergy Type Onset Date Status codeine Codeine hives Drug Allergy Active Penicillin hives Drug Allergy Active Substance with sulfonamide structure and antibacterial mechanism of action (substance) Sulfa Antibiotics hives Drug Allergy Active Results Component Value Reference Range Flag Notes Tox Results Reviewed date:07/19/2025 03:10:49 PM Interpretation: Performing Lab: Notes/Report: Urine Confirmation Panel (in strument) - [id number] Reviewed date:07/18/2025 12:04:39 PM Interpretation: Performing Lab: Notes/Report: 6-Acetylmorphine 0 <6 ng/mL N This nikita t was developed and its performance characteristics determined by [facility]. It has not been cleared or approved by the U.S. Food and Drug Administration. 7-Aminoclonazepam 0 <60 ng/mL N This te st was developed and its performance characteristics determined by [facility]. It has not been cleared or approved by the U.S. Food and Drug Administration. Alprazolam 0 <60 ng/mL N This test was developed and its performance characteristics determined by [facility]. It has not been cleared or approved by the U.S. Food and Drug Administration. Amphetamine 0 <75 ng/mL N This test was developed and its performance characteristics determined by [facility]. It has not been cleared or approved by the U.S. Food and Drug Administration. aOH-Alprazolam 0 <60 ng/mL N This test was developed and its performance characteristics determined by [facility]. It has not been cleared or approved by the U.S. Food and Drug Administration. Buprenorphine 0.0 <7.5 ng/mL N This test w as developed and its performance characteristics determined by [facility]. It has not been cleared or approved by the U.S. Food and Drug Administration. Norbuprenorphine 0.0 <37.5 ng/mL N This te st was developed and its performance characteristics determined by [facility]. It has not been cleared or approved by the U.S. Food and Drug Administration. Carisoprodol 0 <75 ng/mL N This test wa s developed and its performance characteristics determined by [facility]. It has not been cleared or approved by the U.S. Food and Drug Administration. Codeine 0 <75 ng/mL N This test was developed and its performance characteristics determined by [facility]. It has not been cleared or approved by the U.S. Food and Drug Administration. EDDP 0 <75 ng/mL N This test was developed and its performance characteristics determined by [facility]. It has not been cleared or approved by the U.S. Food and Drug Administration. Fentanyl 0 <6 ng/mL N This test was developed and its performance characteristics determined by [facility]. It has not been cleared or approved by the U.S. Food and Drug Administration. Hydrocodone 0 <75 ng/mL N This test was developed and its performance characteristics determined by [facility]. It has not been cleared or approved by the U.S. Food and Drug Administration. Hydromorphone 0 <75 ng/mL N This test w as developed and its performance characteristics determined by [facility]. It has not been cleared or approved by the U.S. Food and Drug Administration. Lorazepam 0 <60 ng/mL N This test was developed and its performance characteristics determined by [facility]. It has not been cleared or approved by the U.S. Food and Drug Administration. MDMA 0 <75 ng/mL N This test was developed and its performance characteristics determined by [facility]. It has not been cleared or approved by the U.S. Food and Drug Administration. Meperidine 0.0 <37.5 ng/mL N This test was developed and its performance characteristics determined by [facility]. It has not been cleared or approved by the U.S. Food and Drug Administration. Meprobamate 0 <75 ng/mL N This test was developed and its performance characteristics determined by [facility]. It has not been cleared or approved by the U.S. Food and Drug Administration. Methamphetamine 0 <75 ng/mL N This test was developed and its performance characteristics determined by [facility]. It has not been cleared or approved by the U.S. Food and Drug Administration. Methadone 0 <75 ng/mL N This test was developed and its performance characteristics determined by [facility]. It has not been cleared or approved by the U.S. Food and Drug Administration. Morphine 0 <75 ng/mL N This test was developed and its performance characteristics determined by [facility]. It has not been cleared or approved by the U.S. Food and Drug Administration. Nordiazepam 0 <60 ng/mL N This test was developed and its performance characteristics determined by [facility]. It has not been cleared or approved by the U.S. Food and Drug Administration. Norfentanyl 0 <6 ng/mL N This test was developed and its performance characteristics determined by [facility]. It has not been cleared or approved by the U.S. Food and Drug Administration. Normeperidine 0.0 <37.5 ng/mL N This test was developed and its performance characteristics determined by [facility]. It has not been cleared or approved by the U.S. Food and Drug Administration. O-desmethyltramadol 2436 <75 ng/mL H This test was developed and its performance characteristics determined by [facility]. It has not been cleared or approved by the U.S. Food and Drug Administration. Oxazepam 0 <60 ng/mL N This test was developed and its performance characteristics determined by [facility]. It has not been cleared or approved by the U.S. Food and Drug Administration. Oxycodone 0.0 <37.5 ng/mL N This test was developed and its performance characteristics determined by [facility]. It has not been cleared or approved by the U.S. Food and Drug Administration. Oxymorphone 0 <75 ng/mL N This test was developed and its performance characteristics determined by [facility]. It has not been cleared or approved by the U.S. Food and Drug Administration. Phencyclidine 0.0 <7.5 ng/mL N This test w as developed and its performance characteristics determined by [facility]. It has not been cleared or approved by the U.S. Food and Drug Administration. Tapentadol 0.0 <37.5 ng/mL N This test was developed and its performance characteristics determined by [facility]. It has not been cleared or approved by the U.S. Food and Drug Administration. Temazepam 0 <60 ng/mL N This test was developed and its performance characteristics determined by [facility]. It has not been cleared or approved by the U.S. Food and Drug Administration. Tramadol 4032 <75 ng/mL H This test was developed and its performance characteristics determined by [facility]. It has not been cleared or approved by the U.S. Food and Drug Administration. Norhydrocodone 0 <75 ng/mL N This test was developed and its performance characteristics determined by [facility]. It has not been cleared or approved by the U.S. Food and Drug Administration. Noroxycodone 0 <38 ng/mL N This test wa s developed and its performance characteristics determined by [facility]. It has not been cleared or approved by the U.S. Food and Drug Administration. Pregabalin 0 <225 ng/mL N This test was developed and its performance characteristics determined by [facility]. It has not been cleared or approved by the U.S. Food and Drug Administration. Gabapentin 0 <225 ng/mL N This test was developed and its performance characteristics determined by [facility]. It has not been cleared or approved by the U.S. Food and Drug Administration. Benzoylecgonine 0.0 <37.5 ng/mL N This nikita t was developed and its performance characteristics determined by [facility]. It has not been cleared or approved by the U.S. Food and Drug Administration. 4-Hydroxy Xylazine 0 <25 ng/mL N This t est was developed and its performance characteristics determined by [facility]. It has not been cleared or approved by the U.S. Food and Drug Administration. Urine Drug Screen (cup read) - [id number] Reviewed date:07/11/2025 10:32:12 AM Interpretation: Performing Lab: Notes/Report: AMP - ERINN - BUP - BZO - MDMA - OPI - PCP - OXY - MTD - MAMP - Reason For Referral Reason eval and treat Diagnosis 1 Chronic pain syndrom e (G89.4) Referring Provider First Name Valery Referring Provider Last Name Michael Referring Provider Speciality Family Med iciflavio Referred Organization [facility] Referred Provider Kinza Leiva Referred Address [address] [facility],[address], Referred Provider Specialty Pain Medicin e General Notes Sylvia Aguillon 11:35:07 AM >mailed npp, pt is scheduled Referral Priority Routine Medications Medication SIG (Take, Route, Frequency, Duration) Notes Start Date End Date Status Lisinopril 20 MG Tablet 1 tablet Orally Once a day Active traMADol HCl 50 MG Tablet 1 tablet as needed Orally every 4-6 hours; Duration: 30 days As needed Not to exceed 3 per day fill 05/19/25 05/09/2025 Active traMADol HCl 50 MG Tablet 1 tablet as needed Orally every 4-6 hrs; Duration: 30 days As needed Not to exceed 3 per day fill 07/11/25 and 08/10/25 and 09/09/25 may fill 1-2 days early if closed 07/11/2025 Active traMADol HCl 50 MG Tablet 1 tablet as needed Orally every 4-6 hours; Duration: 30 days As needed Not to exceed 3 per day fill 06/18/25 may fill 1-2 days early if closed 05/09/2025 Active tiZANidine HCl 2 MG Tablet 1 tablet Orally twice a day; Duration: 30 days 05/09/2025 Active Social History Tobacco Use: Social History Observation Description Date Details (start date - stop date) Never Smoker NA - NA Social History Tobacco Use: Social Info Question Answer Notes Tobacco Control (Standard) Tobacco use: Nonsmoker Additional Details Category Social Info Options Details Miscellaneous: Sexually active: no Sexual abuse: yes Drugs/Alcohol: Do you smoke marijuana? De nies Do you drink alcohol? 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 Problem Lumbosacral spondylosis (334595748) Lumbosacral spondylosis (M47.817) Active confirmed Vital Signs Height-cm 165.1 cm 07/11/2025 Weight-kg 79.38 kg 07/11/2025 Height 65 in 07/11/2025 Weight 175 lbs 07/11/2025 BMI 29.12 kg/m2 07/11/2025 Encounters Encounter Location Date Provider Diagnosis [facility] [place] [address] [place] [address] 05/09/2025 Afshan Prado e Chronic pain syndrome G89.4 ; Remi-Danlos syndrome Q79.60 ; Lumbosacral spondylosis M47.817 and Myalgia M79.10 [facility] [address] [place] [address] 07/11/2025 Afshan Prado e Chronic pain syndrome G89.4 ; Remi-Danlos syndrome Q79.60 ; Lumbosacral spondylosis M47.817 ; Cervical spondylosis M47.812 ; 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 We will obtain records of her cervical spine as well as her L spine from [facility]. We will take a look at that . She has been stable of a regimen of tramadol 50 mg up to three tablets per day and tizanidine 2 mg up to two tablets per day. PDMP reviewed with no untoward events. She is to a physical therapist and stays as active as possible. She continues her home exercise program with him. We will see her back in two months for reevaluation. 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 She reports to be grieving loss of a recent family member (sister's ). She has worsening pain when looking upward and migraines. I reviewed recent MRI with patient today and educated patient that L5/S1 disc is narrowed with compression. I discussed consideration of medial branch blocks, and if she achieves 80% or more relief, she may proceed with radiofrequency ablation. She is doing well on current medication regimen. Will refill Tramadol and obtain UDS confirmation today since we do not have one. We will proceed with a L4/L5 L5/S1 medial branch blocks as well as C5/C6 C6/C7 MBBs. Patient wants to know what her co-pay might be with those interventions. Additionally, she wants to read up on them too. Literature packet provided today. The PDMP was reviewed with no untoward events. Last UDS confirmation was consistent with prescribed medication at that time. The options for treatment were explained in detail, this included PT, medications, injections, lifestyle modifications and exercise. The patient presents to clinic for medication evaluation and management. The patient is stable on their current medication regimen and endorses adequate analgesia, increased ADLs, denies abuse and side effects. A bowel regimen was discussed with the patient. I will see patient back in 3 months for reevaluation. 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 Patient has tried conservative measures including medication with limited benefit and physical therapy and is currently undergoing a home exercise regimen. They have had a decrease in their quality of life as a result of this pain. This pain is impairing their ability to perform ADLs and care for their family. This pain is also interfering with their ability to work. They now have had to increase their medication use. It is medically necessary to proceed with this procedure, risks and expectations of the procedures were discussed with the patient and they agreed to proceed. The patient understands that this is a diagnostic block. The options for treatment were explained in detail, this included PT, medications, injections, lifestyle modifications and exercise. There is no non-facet pathology per clinical assessment or radiology studies that could explain the source of the patient's pain, including but not limited to fracture, tumor, infection or significant deformity. The patient and I are in agreement and understanding that these blocks must be at least two weeks apart. Will proceed with Bilateral L4/L5 and L5/S1 Medial Branch Blocks, if more than 80% relief of pain and/or function it will be medically necessary to proceed with Bilateral L4/L5 and L5/S1 medial branch RFTC. 05/09/2025 Lumbosacral spondylosis (ICD-10 - M47.817) 05/09/2025 Myalgia (ICD-10 - M79.10) 07/11/2025 Cervical spondylosis (ICD-10 - M47.812) Patient is a very pleasant patient with history, physical exam, and imaging consistent of cervical spondylosis mediated pain. Patient has tried conservative measures including medication with limited benefit and physical therapy and is currently undergoing a home exercise regimen. They have had a decrease in their quality of life as a result of this pain. This pain is impairing their ability to perform ADLs and care for their family. This pain is also interfering with their ability to work. They now have had to increase their medication use. It is medically necessary to proceed with this procedure, risks and expectations of the procedures were discussed with the patient and they agreed to proceed. The patient understands that this is a diagnostic block. The options for treatment were explained in detail, this included PT, medications, injections, lifestyle modifications and exercise. Will proceed with Bilateral C5/C6 and C6/C7 Medial Branch Blocks, if more than 80% relief of pain and/or function it will be medically necessary to proceed with Bilateral C5/C6 and C6/C7 medial branch RFTC. 07/11/2025 snf (current) use of opiate analgesic (ICD-10 - Z79.891) 07/11/2025 Myalgia (ICD-10 - M79.10) 05/09/2025 Other Marjan Bowman am scribing for Dr. Afshan Leiva. Afshan Bowman, personally performed the services described in this documentation, as scribed by Marjan Spencer, and it is both accurate and complete. Pt stated she will case picker all xray reports from [facility] 07/11/2025 Other Pawan Bowman am scribing for Dr. Afshan Leiva. Afshan Bowman, personally performed the services described in this documentation, as scribed by Pawan Valladares, and it is both accurate and complete. RECOMMEND URINE TESTING TODAY Urine drug screening will be performed today to monitor compliance with opioid therapy or to serve as a baseline screen for a patient who may be a candidate for opioid therapy in the future, pending UDS results. We will monitor with in-office testing (rapid testing) today and review the results prior to dispensing prescription. All positive results will be sent for quantitative analysis to ensure accuracy and quantify amounts. Any expected positive results that return negative will also be sent for quantitative analysis. Any questionable read or any medication we cannot test for in the office confidently will be sent for quantitative analysis, as well. Patient has been made aware of this policy and agrees to abide by our urine testing policy. Plan Of Treatment Future Test Test Name Order Date Facet Inj. / MBB Cervical/Thoracic, 2 le vels - 51771, [id number] 07/12/2025 Facet Inj. / MBB Lumbar/Sacral, 2 levels - 67413, 12742 07/12/2025 Facet Inj. / MBB Cervical/Thoracic, 2 le vels - 74173, 77784 07/13/2025 Facet Inj. / MBB Lumbar/Sacral, 2 levels - 07038, [id number] 07/13/2025 Next Appt Details Provider Name:Afshan Bowman Natalie Mcduffie, 10/03/2025 08:00:00 AM, [address] [place], [address], Insurance Providers Payer Name Payer Address Payer Phone Subscriber Number Group Number Insured Name Patient Relationship to Insured Coverage Start Date Coverage End Date [facility] [address] [place] [address] [id number] Mary Baugh Self - patient is the insured [place] Medicare [address] [address] [place] [address] [id number] Mary Baugh Self - patient is the insured [place] Medicaid [address] [place] [address] [id number] Antoniogabriela Mary Self - patient is the insured Medical (General) History Medical History History ICD Code High Blood Pressure Hypoglycemia Measles/Mumps/Rubella asthma bronchitis Stomach Ulcer stroke remi-danlos syndrome Surgical History Surgery Date(Month/Year) left knee replacement right knee replacement
[2025-07-27 10:36] VITALS: BP 141/77; PULSE 87; O2SAT 98
--- NOTE | 2025-07-27 10:57 | W.ED.NEUROSD ---
HPI - Neuro Symptoms/Deficit General: Chief Complaint: Neuro Symptoms/Deficit Stated Complaint: loosing vision, headache Time Seen by Provider: 07/27/25 10:08 Source: patient Mode of arrival: ambulatory Limitations: no limitations History of Present Illness: 64-year-old female states that since Thursday she has been having some intermittent episodes of word finding difficulty and vision changes to the right half of her vision. She states she had had an episode this morning while at work has since resolved. States she had an episode of TIA in the past. Had some mild headaches denies headache currently she denies any cough or fever. Related Data Home Medications ?Medication ?Instructions ?Recorded ?Confirmed tizanidine 2 mg tablet 2 mg PO Q12H 11/24/24 07/26/25 Previous Rx's ?Medication ?Instructions ?Recorded tramadol 50 mg tablet 100 mg (2 x 50 mg) PO Q6H PRN pain 11/08/24 5 days #40 tabs levalbuterol HCl 1.25 mg/3 mL See Rx Instructions .Route 01/26/25 solution for nebulization .COMPLEX #75 mL levalbuterol tartrate 45 2 inh inhalation Q6H #15 grams 04/18/25 mcg/actuation aerosol inhaler trazodone 100 mg tablet See Rx Instructions .Route 06/20/25 .COMPLEX #30 tabs lisinopril 20 See Rx Instructions .Route 07/21/25 mg-hydrochlorothiazide 25 mg tablet .COMPLEX #30 tabs aspirin 81 mg capsule 81 mg PO DAILY #30 caps 07/27/25 atorvastatin 80 mg tablet (Lipitor) 80 mg PO DAILY #30 tabs 07/27/25 Allergies Allergy/AdvReac Type Severity Reaction Status Date / Time cephalexin (From Keflex) Allergy rash Verified 07/26/25 11:39 codeine Allergy ALGY-Rash Verified 07/26/25 11:39 Penicillins Allergy ALGY-Rash Verified 07/26/25 11:39 Sulfa (Sulfonamide Allergy ALGY-Rash Verified 07/26/25 11:39 Antibiotics) PFSH ED PFSH: Medical History Seasonal allergies Remi-Danlos syndrome Hypertension Surgical History History of carpal tunnel repair History of ankle surgery left History of repair of rectocele History of hysterectomy History of arthroscopy of left knee History of total knee arthroplasty right History of cholecystectomy Family History Sister Stroke Diabetes Hypertension Thyroid disease Mother Breast cancer Denies family history of Colon cancer Ovarian cancer Heart disease Hypercholesteremia Uterine cancer Social History Smoking and tobacco/nicotine status: never used tobacco/nicotine Second hand smoke exposure: No Alcohol intake: never Substance/Drug Use: never NIH stroke score NIHSS: Level Of Consciousness - 1a: 0 Level Of Consciousness Questions - 1b: Both Correct Level Of Consciousness Commands - 1c: Both Correct Best Gaze - 2: Normal Visual Davis - 3: No Visual Loss Facial Palsy - 4: Normal Motor Arm Right - 5: No Drift Motor Arm Left - 5: No Drift Motor Leg Right - 6: No Drift Motor Leg Left - 6: No Drift Limb Ataxia - 7: Absent Sensory - 8: Normal Best Language - 9: No Aphasia Dysarthia - 10: Normal Extinction And Inattention - 11: 0 Score: Total Score: 0 Physical Exam Const: COMMON NORMALS: no acute distress, patient oriented x3 and healthy appearing HENMT: COMMON NORMALS: normocephalic and atraumatic HEAD & SCALP: normocephalic and atraumatic Eye: COMMON NORMALS: Equal, round and reactive pupils present and EOMs intact bilaterally PUPIL: Yes Equal, round and reactive pupils present Neck/C-Spine: COMMON NORMALS: full ROM and supple Chest: COMMONS NORMALS: normal inspection of the chest and normal palpation of entire chest wall Resp: COMMON NORMALS: normal respiratory effort, No retractions, No use of accessory muscles and clear to auscultation bilaterally AUSCULTATION: clear to auscultation bilaterally Cardio: COMMON NORMALS: regular rate, regular rhythm and No murmurs present (Cardio) RATE: regular rate RHYTHM: regular rhythm GI: COMMON NORMALS: Normal to inspection, nondistended, normoactive bowel sounds present, Soft to palpation, non-tender and no masses PALPATION: Yes Soft to palpation Extremity: COMMON NORMALS: normal to inspection and full ROM Neuro: COMMON NORMALS: patient oriented x3, moves all extremities and no focal motor deficits Psych: COMMON NORMALS: mental status grossly normal, Normal thought process present and cooperative THOUGHT PROCESS: Normal thought process present Skin: COMMON NORMALS: no rashes or lesions noted and no wounds GENERAL SKIN EXAM: no rashes or lesions noted Course Vital Signs: Vital signs: Vital Signs Temperature 98.1 F 07/27/25 09:58 Pulse Rate 73 07/27/25 11:51 Respiratory Rate 18 07/27/25 09:58 Blood Pressure 159/82 07/27/25 11:51 Pulse Oximetry 97 07/27/25 11:51 Oxygen Delivery Me thod Room Air 07/27/25 10:36 MDM - Neuro Symptoms/Deficit Medical Decision Making 64-year-old female who presented here with intermittent episodes of word finding difficulty and vision deficits. Differential includes TIA, CVA. Patient's head CT here showed no acute abnormality did interpret her chest x-ray myself showed no acute abnormalities. Blood work showed no significant abnormalities as well. EKG here showed normal sinus rhythm heart rate [address] elevation QRS 73 QTc 4 1. Her symptoms had resolved by the time she was here stroke alert was not called as it been going on for days. She has had no other symptoms here I did strongly recommend admission here for TIA workup. She stated that there was no way that she could stay as she had had a farm and elderly mother at home she had to care for her and refused admission. I informed her it is very important for her to follow-up with her PCP and will get her neurology follow-up. Will start her on a 81 mg aspirin along with atorvastatin 80 mg. I informed her she is to return if she has any symptoms she understands agrees to plan. Medical Records I reviewed the patient's medical records. Lab Data I reviewed the patient's lab results. 07/27/25 10:55 07/27/25 10:55 Radiology Impressions Chest X-Ray 07/27/25 10:13 IMPRESSION: 1. Negative chest. Head CT 07/27/25 10:13 IMPRESSION: 1. No acute intracranial hemorrhage or edema. 2. Mild small vessel changes. No prior infarct. Laboratory Results WBC 5.86 10^3/uL (3.29-11.43) 07/27/25 10:55 RBC 4.21 10^6/uL (3.85-5.65) 07/27/25 10:55 Hgb 13.00 g/dL (11.27-16.99) 07/27/25 10:55 Hct 37.5 % (36-47) 07/27/25 10:55 MCV 89.1 fl (85-98) 07/27/25 10:55 MCH 30.9 pg (27-33) 07/27/25 10:55 MCHC 34.7 g/dL (30-55) 07/27/25 10:55 RDW 12.4 % (12.1-15.1) 07/27/25 10:55 Plt Count 257 10^3/cmm (157-399) 07/27/25 10:55 MPV 9.5 fL (7.4-10.4) 07/27/25 10:55 Neut % (Auto) 56.6 % 07/27/25 10:55 Lymph % (Auto) 33.8 % 07/27/25 10:55 Terry % (Auto) 6.0 % 07/27/25 10:55 Eos % (Auto) 3.1 % 07/27/25 10:55 Baso % (Auto) 0.3 % 07/27/25 10:55 Neut # (Auto) 3.32 10^3/uL (1.8-7.7) 07/27/25 10:55 Lymph # (Auto) 2.0 10^3/uL (0.8-4.8) 07/27/25 10:55 Terry # (Auto) 0.4 10^3/uL (0.2-0.9) 07/27/25 10:55 Eos # (Auto) 0.2 10^3/uL (0.0-0.8) 07/27/25 10:55 Baso # (Auto) 0.0 10^3/uL (0.0-0.1) 07/27/25 10:55 Nucleated RBC % (auto) 0 % 07/27/25 10:55 Nucleated RBCs # 0.0 /100WBC 07/27/25 10:55 PT 12.70 SECONDS (12.1-14.9) 07/27/25 10:55 INR 0.89 (0.8-1.2) 07/27/25 10:55 Sodium 138 mmol/L (136-145) 07/27/25 10:55 Potassium 3.4 mmol/L (3.5-5.1) L 07/27/25 10:55 Chloride 98 mmol/L (98-107) 07/27/25 10:55 Carbon Dioxide 26 mmol/L (22-29) 07/27/25 10:55 Anion Gap 17.4 (5-19) 07/27/25 10:55 BUN 9 mg/dL (8-23) 07/27/25 10:55 Creatinine 0.7 mg/dL (0.5-0.9) 07/27/25 10:55 GFR Calculation 84.0 mL/min (90-130) L 07/27/25 10:55 Glucose 97 mg/dL (65-115) 07/27/25 10:55 Calculated Osmolality 285 mOsm/kg (285-295) 07/27/25 10:55 Calcium 9.3 mg/dL (8.5-10.5) 07/27/25 10:55 Total Bilirubin 0.3 mg/dL (0.15-1.2) 07/27/25 10:55 AST 16 U/L (0-32) 07/27/25 10:55 ALT 19 U/L (0-33) 07/27/25 10:55 Alkaline Phosphatase 62 U/L (35-105) 07/27/25 10:55 Total Protein 7.0 g/dL (6.6-8.7) 07/27/25 10:55 Albumin 4.6 g/dL (3.5-5.2) 07/27/25 10:55 Globulin 2.4 g/dL (1.3-4.6) 07/27/25 10:55 All radiology interpretation(s) finalized by discharge EKG Data EKG 1: I personally reviewed and interpreted this EKG as follows: EKG interpretation date: 07/27/25 EKG interpretation time: 10:11 Interpretation: nsr hr [address] elevation qrs 73 qtc 401 Discharge Plan Discharge Patient Disposition: Home Clinical Impression: Brain TIA Condition: Stable Prescriptions: New aspirin 81 mg capsule 81 mg PO DAILY Qty: 30 0RF atorvastatin [Lipitor] 80 mg tablet 80 mg PO DAILY Qty: 30 0RF No Action levalbuterol tartrate 45 mcg/actuation HFA aerosol inhaler 2 inh inhalation Q6H Qty: 15 0RF tramadol 50 mg tablet 100 mg PO Q6H PRN (Reason: pain) 5 Days Qty: 40 0RF levalbuterol HCl 1.25 mg/3 mL solution for nebulization See Rx Instructions .ROUTE .COMPLEX Qty: 75 0RF Dose Instruction: INHALE ONE vial via NEBULIZER EVERY 4 HOURS NEEDED FOR SHORTNESS OF BREATH or wheezing Rx Instructions: INHALE ONE vial via NEBULIZER EVERY 4 HOURS NEEDED FOR SHORTNESS OF BREATH or wheezing trazodone 100 mg tablet See Rx Instructions .ROUTE .COMPLEX Qty: 30 2RF Dose Instruction: TAKE ONE TABLET BY MOUTH DAILY as needed for insomnia Rx Instructions: TAKE ONE TABLET BY MOUTH DAILY as needed for insomnia lisinopril-hydrochlorothiazide 20-25 mg tablet See Rx Instructions .ROUTE .COMPLEX Qty: 30 0RF Dose Instruction: TAKE ONE TABLET BY MOUTH DAILY Rx Instructions: TAKE ONE TABLET BY MOUTH DAILY tizanidine 2 mg tablet 2 mg PO Q12H Discharge Orders: Discharge ED (Routine); Ordered 07/27/25 Ordered By: Davie Muniz Referrals: Valery Rodriguez MD [Primary Care Provider, Family Practice] - 1-3 days Discharge Diet: Advance as tolerated Discharge Activity: Resume usual activity Patient Instructions: Transient Ischemic Attack (ED) Print Language: [place] Coding Level of Care Code ED [employer] for [employer] Robertson
[2025-07-27 11:01] LABS: Hematocrit 37.5 % (36-47); Hemoglobin 13.00 g/dL (11.27-16.99); Mean Corpuscular HGB Conc 34.7 g/dL (30-55); Mean Corpuscular Hemoglobin 30.9 pg (27-33); Mean Corpuscular Volume 89.1 fl (85-98); Nucleated Red Blood Cells % 0 %; Platelet Count 257 10^3/cmm (157-399); Red Blood Count 4.21 10^6/uL (3.85-5.65); White Blood Count 5.86 10^3/uL (3.29-11.43)
[2025-07-27 11:16] LABS: INR 0.89 (0.8-1.2); Prothrombin Time 12.70 SECONDS (12.1-14.9)
[2025-07-27 11:22] LABS: Alanine Aminotransferase 19 U/L (0-33); Albumin Level 4.6 g/dL (3.5-5.2); Alkaline Phosphatase 62 U/L (35-105); Anion Gap 17.4 (5-19); Aspartate Amino Transferase 16 U/L (0-32); Blood Urea Nitrogen 9 mg/dL (8-23); Calcium 9.3 mg/dL (8.5-10.5); Carbon Dioxide 26 mmol/L (22-29); Chloride 98 mmol/L (98-107); Globulin 2.4 g/dL (1.3-4.6); Glucose 97 mg/dL (65-115); Osmolality Calculated 285 mOsm/kg (285-295); Potassium 3.4 mmol/L (3.5-5.1); Sodium 138 mmol/L (136-145); Total Protein 7.0 g/dL (6.6-8.7)
[2025-07-27 11:51] VITALS: BP 159/82; PULSE 73; O2SAT 97
--- NOTE | 2025-07-27 11:52 | DCPLANNER ---
messaged neuro for er f/u
== END 2025-07-27 11:54 | disposition home or self-care (01) ==
PROVIDERS: Emergency Provider Emergency Medicine; PCP Family Medicine
DX: G45.9 Transient cerebral ischemic attack, unspecified (principal); I10 Essential (primary) hypertension; Z86.73 Personal history of transient ischemic attack (TIA), and cerebral infarction without residual deficits
CPT/HCPCS: 36415; 70450; 71045; 80053; 85025; 85610; 93005; 99285

== ENCOUNTER → 2025-08-01 13:36 | Outpatient (BNVA) | payer OTHER, MEDICARE, MEDICAID, SELFPAY | PROVIDERS: PCP Family Medicine; Visit Provider Student in an Organized Health Care Education/Training Program | DX: Z98.890 Other specified postprocedural states (principal); Z47.1 Aftercare following joint replacement surgery; Z96.652 Presence of left artificial knee joint | CPT/HCPCS: 73560; 73565 ==

== ENCOUNTER 2025-08-09 11:37 | Outpatient (CLI) | payer OTHER, MEDICARE, MEDICAID, SELFPAY ==
--- NOTE | 2025-08-09 12:15 | MRR_ITS ---
PROCEDURE INFORMATION: Exam: MR Left Upper Extremity Joint Without Contrast; Shoulder Exam date and time: 08/09/2025 12:07 PM Age: 64 years old Clinical indication: Impingement of left shoulder, fall/injury x 1 month, limited range of motion/pain TECHNIQUE: Imaging protocol: Magnetic resonance imaging of the left upper extremity without contrast. Exam focused on the shoulder. COMPARISON: CR XR shoulder LT min 2V* [id number] 07/25/2025 10:06 AM FINDINGS: Bones/joints: Small joint effusion is present at the glenohumeral joint. There is fluid present within the subscapularis bursa. No suspicious bone marrow signal abnormality within the proximal humerus or glenoid. Normal alignment of the AC joint. Hypertrophic change and edema is present at the AC joint. Superficial and undersurface spurring is present at the AC joint. Fluid and cystic changes present within the subcoracoid space and subacromial space. No fracture. Mild arthritic changes present at the glenohumeral joint. Articular cartilage along the head of the humerus appears intact. Articular cartilage along the glenoid is intact. Glenoid labrum: No detached or displaced labral tear. Anterior superior aspect of the labrum appears blunted and demonstrates heterogeneous increased signal intensity. This is a region of many normal variance. Small labral tear involving the anterior superior labrum is not excluded on this exam. Bursae: Small amount of fluid is present within the subdeltoid bursa. Supraspinatus tendon: Full-thickness tear and partial retraction of the supraspinatus tendon. Tendon is retracted approximately 2.6 cm from the expected insertion on the greater tuberosity. Slight high-riding position of the humeral head with relation of the glenoid secondary to tear of the overlying supraspinatus tendon. Infraspinatus tendon: Infraspinatus tendon is intact. Subscapularis tendon: Mild heterogeneous increased signal intensity and thickening within the subscapularis tendon compatible with tendinopathy. Teres minor tendon: Teres minor tendon is intact. Tendon of biceps brachii: Biceps tendon is intact and normally positioned within the bicipital groove. Mild intrasubstance increased signal intensity and thickening within the proximal biceps tendon compatible with mild tendinopathy. Glenohumeral ligaments: Intact. Soft tissues: Overlying deltoid musculature is intact. Remainder of the musculature surrounding the shoulder is intact. Lymph nodes: No axillary mass or suspicious lymphadenopathy. MR/MR shoulder LT wo con* [id number] IMPRESSION: 1. Full-thickness tear involving the supraspinatus tendon. Tendon is retracted from the expected insertion on the greater tuberosity proximally 2.6 cm. 2. Biceps tendon and biceps anchor are intact. Mild heterogeneous increased signal intensity within the proximal biceps tendon compatible with biceps tendinopathy. 3. Mild tendinopathy involving the distal fibers of the subscapularis tendon. 4. Hypertrophic change and bony spurring at the AC joint. AC joint is normally aligned. 5. Small joint effusion is present at the glenohumeral joint. There is fluid present within the subdeltoid bursa, subcoracoid space, subscapularis bursa and subacromial space. 6. Mild arthritic changes present at the glenohumeral joint. 7. Mild degeneration of the labrum. Heterogeneous increased signal intensity extends into the anterior superior aspect of the labrum. This is a region of many normal variance.
== END 2025-08-09 11:38 | disposition home or self-care (01) ==
PROVIDERS: PCP Family Medicine; Visit Provider Physician Assistant
DX: M75.102 Unspecified rotator cuff tear or rupture of left shoulder, not specified as traumatic (principal); M75.42 Impingement syndrome of left shoulder; M67.812 Other specified disorders of synovium, left shoulder; M89.312 Hypertrophy of bone, left shoulder; M25.412 Effusion, left shoulder; M19.012 Primary osteoarthritis, left shoulder; S43.432A Superior glenoid labrum lesion of left shoulder, initial encounter; X58.XXXA Exposure to other specified factors, initial encounter
CPT/HCPCS: 73221